=== PATIENT | female | born 1935 | race Caucasian/White ===

== ENCOUNTER → 2016-10-12 | Outpatient (CLI) | payer OTHER ==
[~2016-10-12] MED LIST: ASPEC81 PO; INDSR80 PO; LVQ750 PO; TYL325X PO
[2016-10-12 17:08] LABS: BLOOD UREA NITROGEN 17 mg/dl (7-18); BUN/CREATININE RATIO 17.2 (10-20); CARBON DIOXIDE 28 mmol/L (21-32); CHLORIDE 106 mmol/L (98-107); GLUCOSE 87 mg/dl (70-99); SODIUM 142 mmol/L (136-145)
== END | disposition home or self-care (01) ==
LOC: C.LABBFT 14:30
PROVIDERS: ATTEND Internal Medicine
DX: R60.9 Edema, unspecified (principal)

== ENCOUNTER → 2016-10-17 | Outpatient (CLI) | payer OTHER ==
[2016-10-17 17:31] LABS: URINE APPEARANCE CLEAR (CLEAR); URINE BILIRUBIN NEG (NEG); URINE COLOR YELLOW; URINE NITRITE NEG (NEG); URINE SPECIFIC GRAVITY 1.021 (1.000-1.030); UROBILINOGEN NEG (NEG)
[2016-10-17 17:33] LABS: MANUAL MICROSCOPIC REQUIRED? NO; REVIEW REQ? YES
== END | disposition home or self-care (01) ==
LOC: C.LABBFT 12:56
PROVIDERS: ATTEND Internal Medicine
DX: N32.81 Overactive bladder (principal)

== ENCOUNTER → 2017-04-03 | Outpatient (CLI) | payer OTHER ==
[2017-04-03 11:44] LABS: URINE APPEARANCE CLEAR (CLEAR); URINE BILIRUBIN NEG (NEG); URINE COLOR YELLOW; URINE NITRITE NEG (NEG); URINE PH 6.5 (4.5-7.5); URINE SPECIFIC GRAVITY 1.013 (1.000-1.030); UROBILINOGEN NEG (NEG)
[2017-04-03 11:45] LABS: MANUAL MICROSCOPIC REQUIRED? NO; REVIEW REQ? NO
== END | disposition home or self-care (01) ==
LOC: C.LABSPEC 11:03
PROVIDERS: ATTEND Physician Assistant
DX: R31.9 Hematuria, unspecified (principal)

== ENCOUNTER → 2017-09-14 | Outpatient (CLI) | payer OTHER ==
--- NOTE | 2017-09-14 12:02 | DIAGNOSTIC IMAGING REPORT ---
ABDOMINAL AORTIC ULTRASOUND CLINICAL HISTORY: LOW BACK PAIN, SYNCOPAL EPISODE COMPARISON STUDY: Abdomen and pelvis CT 12/28/2015. FINDINGS: The proximal abdominal aorta measures 1.9 cm, mid aorta 1.6 cm, and distal aorta 2.1 cm. The bilateral common iliac arteries measure 1.1 cm. IMPRESSION: Mildly ectatic abdominal aorta as described above. No evidence for an abdominal aortic aneurysm. Electronically signed by: Kennedy Milian M.D. 09/14/2017 12:01 PM Dictated Date/Time: 09/14/2017 11:54 AM
[2017-09-14 12:03] LABS: BASO % 0.6 %; BASO ABS # 0.06 K/uL (0-0.2); COMPLETE YES; HEMATOCRIT 42.9 % (37-47); IG% 0.5 %; LYMPH % 14.1 %; LYMPH ABS # 1.53 K/uL (1.2-3.4); MEAN CELL VOLUME 84.3 fL (80-100); MEAN CORPUSCULAR HEMOGLOBIN 28.5 pg (25-34); MEAN CORPUSCULAR HGB CONC 33.8 g/dl (32-36); NEUT % 72.8 %; PLATELET COUNT 200 K/uL (130-400); RED BLOOD COUNT 5.09 M/uL (4.2-5.4); WHITE BLOOD COUNT 10.86 K/uL (4.8-10.8)
[2017-09-14 12:10] LABS: PROTHROMBIN TIME (PATIENT) 10.4 SECONDS (9.0-12.0)
[2017-09-14 12:49] LABS: ALT/SGPT 13 U/L (12-78); AST/SGOT 12 U/L (15-37); BLOOD UREA NITROGEN 19 mg/dl (7-18); BUN/CREATININE RATIO 19.9 (10-20); CALCIUM 9.2 mg/dl (8.5-10.1); CARBON DIOXIDE 27 mmol/L (21-32); CHLORIDE 104 mmol/L (98-107); CREATININE 0.94 mg/dl (0.60-1.20); GLUCOSE 84 mg/dl (70-99); POTASSIUM 3.8 mmol/L (3.5-5.1); SODIUM 137 mmol/L (136-145)
[2017-09-14 12:59] LABS: ALB/GLOB RATIO 0.6 (0.9-2); ALKALINE PHOSPHATASE 103 U/L (45-117)
== END | disposition home or self-care (01) ==
LOC: C.ULTR 11:07
PROVIDERS: ATTEND Nurse Practitioner
DX: M54.5 Low back pain (principal); R55 Syncope and collapse; R53.83 Other fatigue

== ENCOUNTER 2017-11-12 08:38 | Emergency (ER) | payer OTHER ==
[~2017-11-12] VITALS: Ht 154.9 cm; Wt 80.0 kg
[2017-11-12 08:45] VITALS: TEMP 36.4; Ht 154.9 cm; Wt 80.0 kg
--- NOTE | 2017-11-12 09:28 | DIAGNOSTIC IMAGING REPORT ---
L KNEE 1 OR 2 VIEWS ROUTINE CLINICAL HISTORY: Left knee pain status post trauma COMPARISON: None. DISCUSSION: No fractures or dislocations are visualized. The bones are osteopenic. There is pronounced anterior medial soft tissue swelling. IMPRESSION: Pronounced soft tissue swelling. No fractures are visualized Electronically signed by: Sagar Seo M.D. 11/12/2017 9:27 AM Dictated Date/Time: 11/12/2017 9:26 AM
--- NOTE | 2017-11-12 10:00 | EMERGENCY ROOM VISIT NOTE ---
History Report prepared by David: Juan Marcelino Under the Supervision of: Dr. Fede Higgins D.O. First contact with patient: 09:05 Chief Complaint: KNEEPAIN Stated Complaint: LEFT KNEE INJURY History of Present Illness The patient is an 82 year old female who presents to the Emergency Room with complaints of a sudden left knee injury that occurred after a mechanical fall prior to arrival this morning. The patient says that she was walking in her kitchen and just "went down". She says that she usually uses a walker, but she was not using the walker when she fell. The patient notes that she has not fallen in a couple years. She says that she has had persistent pain around the left knee with some large bruising. She notes that the pain is worsened with bending her leg. The patient states that she takes a baby Aspirin daily but no other blood thinners. Source of History: patient Onset: [employer] SERV[employer]ESSION[employer] this morning Position: knee (left) Symptom Intensity: with bruising Quality: other (pain) Timing: other (sudden) Modifying Factors (Worsening): movement Note: No other associated symptoms noted. Review of Systems See HPI for pertinent positives & negatives. A total of 10 systems reviewed and were otherwise negative. Past Medical & Surgical Medical Problems: (1) Community acquired bacterial pneumonia (2) Headache (3) Hypertension Family History Cancer Stroke MOTHER Social History Smoking Status: Former Smoker Drug Use: none Marital Status: Housing Status: lives with family Occupation Status: retired Current/Historical Medications Scheduled Aspirin (Sindhu Aspirin Ec Low Dose), 81 MG PO DAILY Multiple Vitamins W/ Minerals ([employer] Formula), 1 CAP PO DAILY Propranolol Hcl (Propranolol Hcl Er), 160 MG PO DAILY Allergies Coded Allergies: Furosemide (Verified Allergy, Intermediate, water blisters, 11/12/17) Physical Exam Vital Signs Date Time Temp Pulse Resp B/P (MAP) Pulse Ox O2 Delivery O2 Flow Rate FiO2 11/12/17 08:45 36.4 70 20 144/73 93 Room Air Physical Exam CONSTITUTIONAL/VITAL SIGNS: Reviewed / noted above. GENERAL: Non-toxic in appearance. INTEGUMENTARY: Warm, dry, and Pinson. HEAD: Normocephalic. EYES: without scleral icterus or trauma. ENT/OROPHARYNX: clear and moist. LYMPHADENOPATHY/NECK: Is supple without lymphadenopathy or meningismus. RESPIRATORY: Lungs clear and equal. CARDIOVASCULAR: Regular rate and rhythm. GI/ABDOMEN: Soft and nontender. No organomegaly or pulsatile mass. No rebound or guarding. Normal bowel sounds. EXTREMITIES: Bruise lateral aspect leg leg and overlying left knee. Abrasion/ skin tear overlying left knee. BACK: No CVA tenderness. NEUROLOGICAL: Intact without focal deficits. PSYCHIATRIC: normal affect. MUSCULOSKELETAL: Normally developed with good muscle tone. Medical Decision & Procedures ER Provider Diagnostic Interpretation: X ray results and stated below per my interpretation and radiology interpretation. L KNEE 1 OR 2 VIEWS ROUTINE CLINICAL HISTORY: Left knee pain status post trauma COMPARISON: None. DISCUSSION: No fractures or dislocations are visualized. The bones are osteopenic. There is pronounced anterior medial soft tissue swelling. IMPRESSION: Pronounced soft tissue swelling. No fractures are visualized Electronically signed by: Sagar Seo M.D. 11/12/2017 9:27 AM Dictated Date/Time: 11/12/2017 9:26 AM ED Course 0950: Previous medical records were reviewed. The patient was evaluated in room B6. A complete history and physical examination was performed. I discussed the results and findings with the patient. She verbalized agreement of the treatment plan. She will be discharged home. Medical Decision Differentials include: Close head injury, intracranial bleed, facial trauma, cervical spine trauma, chest and thoracic trauma, abdominal and intra-abdominal trauma, spine neurologic trauma, and extremity trauma. This is a 82-year-old female who presents to the ED after a fall. The patient states that she was walking in the kitchen without her walker and her leg gave out causing her to fall onto her left knee. The patient presents with a moderate sized ecchymotic area over the left knee with a small abrasion/skin tear. There is also a moderate amount of ecchymosis in the left lower extremity laterally. The patient has good distal pulses. She has no pain with axial loading. There is no apparent ligamentous laxity on exam of the leg. There is no fullness in the popliteal region. The patient is otherwise neurovascularly intact. X-ray did not show fracture. The patient was told the results. She had the wound cleaned and dressed on the left knee. An Gwyn bandage was applied over the lower extremity for some compression. She was told to follow-up with Dr. Love later this week for recheck. She was advised to use her walker at all times. Medication Reconcilliation Current Medication List: was personally reviewed by me Blood Pressure Screening Patient's blood pressure: Elevated blood pressure Blood pressure disposition: Elevated BP felt to be situational Impression Primary Impression: Contusion of left knee Additional Impressions: Contusion of left leg Abrasion of left knee Scribe Attestation The scribe's documentation has been prepared under my direction and personally reviewed by me in its entirety. I confirm that the note above accurately reflects all work, treatment, procedures, and medical decision making performed by me. Departure Information Dispostion Home / Self-Care Referrals Stan Love M.D. (PCP) Patient Instructions My [facility] Additional Instructions Keep the Gwyn wrap in place until being seen by your PCP later this week. Discontinue aspirin for the next several days. Return for any concerns, signs of infection or other issues. Use your walker at all times. Problem Qualifiers
[2017-11-12 10:20] VITALS: BP 140/89; PULSE 64; O2SAT 95
[2017-11-24] MEDS ORDERED: PROP160C PO (09:22)
[2017-11-24] MEDS ORDERED: MULT1CAP53 PO (09:22)
[2017-11-24] MEDS ORDERED: ASPI1TAB2 PO (09:22)
== END 2017-11-12 10:31 | disposition home or self-care (01) ==
LOC: EDBD 08:38 → C.EDB 08:39
DX: S80.02XA Contusion of left knee, initial encounter (principal); S80.212A Abrasion, left knee, initial encounter; W19.XXXA Unspecified fall, initial encounter; Y92.090 Kitchen in other non-institutional residence as the place of occurrence of the external cause; I10 Essential (primary) hypertension; Z79.82 Long term (current) use of aspirin; Z79.899 Other long term (current) drug therapy

== ENCOUNTER → 2017-11-16 | Outpatient (CLI) | payer OTHER ==
[~2017-11-16] MED LIST changes: -ASPEC81 PO; +ASPI1TAB2 PO; -INDSR80 PO; -LVQ750 PO; +MULT1CAP53 PO; +PROP160C PO; -TYL325X PO
--- NOTE | 2017-11-16 09:32 | DIAGNOSTIC IMAGING REPORT ---
L RIBS UNILATERAL WITH PA CHEST CLINICAL HISTORY: Fall. Left-sided rib pain. COMPARISON STUDY: Chest radiograph August 20, 2016. FINDINGS: There is no pneumothorax. There is a trace left pleural effusion with mild left basilar opacity. No acute left rib fractures are identified. There are cholecystectomy clips. There are old bilateral proximal humeral fractures. There is no evidence for pulmonary edema. Cardiomediastinal silhouette is stable. IMPRESSION: 1. No pneumothorax. No acute left rib fractures identified. 2. Trace left pleural effusion with mild left basilar opacity suggestive of atelectasis. Electronically signed by: Artemio Delgadillo M.D. 11/16/2017 9:31 AM Dictated Date/Time: 11/16/2017 9:25 AM
== END | disposition home or self-care (01) ==
LOC: C.RAD1850 09:08
PROVIDERS: ATTEND Internal Medicine
DX: R07.81 Pleurodynia (principal)

== ENCOUNTER 2017-11-24 15:55 | Inpatient (IN) | payer OTHER ==
[~2017-11-24] VITALS: Ht 154.9 cm; Wt 80.4 kg
[2017-11-24] MEDS ORDERED: ACETAMINOPHEN 500 MG TAB PO STA (16:17)
[2017-11-24] MEDS ORDERED: ONDANSETRON INJ 2 MG/ML 2 ML VIAL IV STA (16:17)
[2017-11-24] MEDS ORDERED: MoRPHine SULFATE 4 MG/ML 1 ML CARP\\VIAL IV STA (16:17)
--- NOTE | 2017-11-24 16:27 | EMERGENCY ROOM VISIT NOTE ---
History Report prepared by David: Evan Dent Under the Supervision of: Dr. Manjit Herron M.D. First contact with patient: 16:04 Chief Complaint: LEG PAIN,LEG INJURY Stated Complaint: FELL ON LEFT LEG History of Present Illness The patient is an 82 year old female with a past medical history of hypertension who presents to the ED with a cc of constant left knee pain following a fall occurring 11/12/2017. Positive for chills. Negative for numbness and tingling in her left leg, nausea, vomiting, changes in her bowel movements, and urinary symptoms. The patient states that she fell on 11/12/2017 and hurt her knee. She notes that she came to the emergency department and had an X-RAY done which showed that she had no broken bones. She reports that her knee has since become more hot and swollen. The patient states that she has not had any other falls since her initial one. Per , the patient has been able to walk around the house with her walker. The patient notes that she takes Aleve for pain and Inderal for her tremors. Source of History: patient, spouse/significant other Onset: 11/12/2017 Position: knee (left) Quality: other (swollen and hot) Timing: constant Associated Symptoms: + chills, No nausea, No vomiting, No urinary symptoms, No numbness Note: The patient also denies tingling in her legs and changes in her bowel movements. Review of Systems See HPI for pertinent positives and negatives. A total of ten systems were reviewed and were otherwise negative. Past Medical & Surgical Medical Problems: (1) Community acquired bacterial pneumonia (2) Fall (3) Headache (4) Hypertension Family History Cancer Stroke MOTHER Social History Smoking Status: Former Smoker Drug Use: none Marital Status: Housing Status: lives with family Occupation Status: retired Current/Historical Medications Scheduled Aspirin (Sindhu Aspirin Ec Low Dose), 81 MG PO HOLD Multiple Vitamins W/ Minerals ([employer] Formula), 1 CAP PO DAILY Propranolol Hcl (Propranolol Hcl Er), 160 MG PO DAILY Allergies Coded Allergies: Furosemide (Verified Allergy, Intermediate, water blisters, 11/12/17) Physical Exam Vital Signs Date Time Temp Pulse Resp B/P (MAP) Pulse Ox O2 Delivery O2 Flow Rate FiO2 11/24/17 18:24 68 11/24/17 18:20 66 131/64 93 Room Air 11/24/17 15:57 36.2 78 20 139/74 96 Room Air Physical Exam GENERAL: Awake, alert, well-appearing, NAD, obese, mild discomfort HENT: Normocephalic, atraumatic. EYES: Normal conjunctiva. Sclera non-icteric. NECK: Supple. No nuchal rigidity. FROM. RESPIRATORY: CTAB, no rhonchi, wheezing, crackles CARDIAC: RRR, no MRG ABDOMEN: Soft, NTND, BS+ MSK: No chest wall TTP, no LE edema NEURO: GCS 15, CN 2-12 intact, moves all 4s on command, allodynia, SP/DP/Tib nerves intact to sensory and motor SKIN: No rash or jaundice noted, erythema and bruising to knee and lower extremity distal to the knee, skin is taut, blanching erythema, large effusion at the knee with redness, hemorrhagic bullae 5x3cm over left lateral duarte. Medical Decision & Procedures ER Provider Diagnostic Interpretation: Radiology results as stated below per my review and radiologist interpretation: L TIBIA/FIBULA 2 VIEWS ROUTINE FINDINGS: Bones appear mildly demineralized. Previously described longitudinal acute fracture of the patella is not appreciated by radiographs. Tricompartmental osteoarthritis about the knee, mild to moderate within the patellofemoral joint. Extensive soft tissue swelling about the knee and lateral mid lower leg measuring up to 13 cm in length with level left mid calf. These findings likely correlate with hematoma as seen on comparison study. IMPRESSION: 1. Previously described acute fracture of the patella is not appreciated by radiographs. 2. Extensive soft tissue swelling about the knee and lateral aspect of the mid lower leg is compatible with hematoma formation as seen on comparison CT of same day. The above report was generated using voice recognition software. It may contain grammatical, syntax or spelling errors. Electronically signed by: Hosea Adkins M.D. 11/24/2017 5:[address] L LOWER EXTREMITY WITHOUT FINDINGS: The bones are osteopenic. There is a longitudinal fracture through the lateral aspect of the patella. The fracture fragment measures 7 x 6 x 14 mm. There are mild osteoarthritic changes present. No fractures of the proximal tibia, fibula, or distal femur are visualized. There is an anterior and lateral curvilinear fluid collection which is mildly hyperdense and consistent with a hematoma. This measures 2 cm in thickness, and has a craniocaudad extent of approximately 12 cm. This is contiguous with a lateral soft tissue hematoma which abuts the superficial fascia of the tibialis posterior muscle. No intramuscular involvement is visualized on this examination. IMPRESSION: 1. Longitudinal fracture through the lateral aspect of the patella 2. Large soft tissue hematomas. The lateral component abuts the superficial fascia of the tibialis posterior muscle. No intramuscular involvement is visualized. Electronically signed by: Sagar Seo M.D. 11/24/2017 5:14 PM ULTRASOUND L VENOUS DOPP LOWER EXT UNILAT FINDINGS: Real-time and color flow Doppler imaging were performed. Flow was seen within the femoral, popliteal and calf veins with no intraluminal thrombus demonstrated. The saphenous vein is patent. There is a complex fluid collection within the lateral aspect of the lower leg. This is consistent with a hematoma. IMPRESSION: 1. No evidence of left lower extremity DVT 2. Superficial soft tissue hematoma within the lateral aspect of the lower leg measuring 25 x 8 x 3 cm Electronically signed by: Sagar Seo M.D. 11/24/2017 6:31 PM ARTERIAL DOPPLER ULTRASOUND OF THE LEFT LOWER EXTREMITY FINDINGS: There is a large left lateral calf hematoma. The patient was unable to tolerate ABIs. There is monophasic flow with the left common femoral artery, superficial femoral artery, popliteal artery, anterior tibial artery, posterior tibial artery, and peroneal artery. The monophasic waveforms raise the possibility of a more proximal iliac stenosis. IMPRESSION: 1. No evidence of focal stenosis within the left lower extremity 2. Diffuse monophasic waveforms raising the possibility of a more proximal iliac stenosis 3. Large left lateral calf hematoma Electronically signed by: Sagar Seo M.D. 11/24/2017 6:34 PM Laboratory Results 11/24/17 16:30 Red Blood Count 3.80, Mean Corpuscular Volume 84.5, Mean Corpuscular Hemoglobin 27.6, Mean Corpuscular Hemoglobin Concent 32.7, Mean Platelet Volume 8.3, Neutrophils (%) (Auto) 70.3, Lymphocytes (%) (Auto) 14.0, Monocytes (%) (Auto) 9.7, Eosinophils (%) (Auto) 5.1, Basophils (%) (Auto) 0.5, Neutrophils # (Auto) 6.40, Lymphocytes # (Auto) 1.28, Monocytes # (Auto) 0.89, Eosinophils # (Auto) 0.47, Basophils # (Auto) 0.05 11/24/17 16:30 Test 11/24/17 16:30 White Blood Count 9.13 K/uL (4.8-10.8) Red Blood Count 3.80 M/uL (4.2-5.4) Hemoglobin 10.5 g/dL (12.0-16.0) Hematocrit 32.1 % (37-47) Mean Corpuscular Volume 84.5 fL (80-100) Mean Corpuscular Hemoglobin 27.6 pg (25-34) Mean Corpuscular Hemoglobin Concent 32.7 g/dl (32-36) Platelet Count 276 K/uL (130-400) Mean Platelet Volume 8.3 fL (7.4-10.4) Neutrophils (%) (Auto) 70.3 % Lymphocytes (%) (Auto) 14.0 % Monocytes (%) (Auto) 9.7 % Eosinophils (%) (Auto) 5.1 % Basophils (%) (Auto) 0.5 % Neutrophils # (Auto) 6.40 K/uL (1.4-6.5) Lymphocytes # (Auto) 1.28 K/uL (1.2-3.4) Monocytes # (Auto) 0.89 K/uL (0.11-0.59) Eosinophils # (Auto) 0.47 K/uL (0-0.5) Basophils # (Auto) 0.05 K/uL (0-0.2) RDW Standard Deviation 46.6 fL (36.4-46.3) RDW Coefficient of Variation 15.1 % (11.5-14.5) Immature Granulocyte % (Auto) 0.4 % Immature Granulocyte # (Auto) 0.04 K/uL (0.00-0.02) Erythrocyte Sedimentation Rate 50 mm/hr (0-21) Prothrombin Time 10.1 SECONDS (9.0-12.0) Prothromb Time International Ratio 1.0 (0.9-1.1) Activated Partial Thromboplast Time 30.3 SECONDS (21.0-31.0) Partial Thromboplastin Ratio 1.2 Anion Gap 4.0 mmol/L (3-11) Est Creatinine Clear Calc Drug Dose 34.1 ml/min Estimated GFR () 49.0 Estimated GFR (Non- 42.3 BUN/Creatinine Ratio 16.8 (10-20) Calcium Level 8.9 mg/dl (8.5-10.1) C-Reactive Protein 8.67 mg/dl (0-0.29) Laboratory results reviewed by me Medications Administered Medications (Trade) Dose Ordered Sig/Georgette Route Start Time Stop Time Status Last Admin Dose Admin Ondansetron HCl (Zofran Inj) 4 mg NOW STAT IV 11/24/17 16:17 11/24/17 16:20 DC 11/24/17 16:37 4 MG Acetaminophen (Tylenol Tab) 1,000 mg NOW STAT PO 11/24/17 16:17 11/24/17 16:20 DC 11/24/17 16:38 1,000 MG Morphine Sulfate (MoRPHine SULFATE INJ) 4 mg NOW STAT IV 11/24/17 16:17 11/24/17 16:20 DC 11/24/17 16:37 4 MG Vancomycin HCl 1600 mg/Sodium Chloride 532 ml @ 200 mls/hr ONE STAT IV 11/24/17 18:44 11/24/17 21:23 11/24/17 19:05 200 MLS/HR ED Course 1609: The patient was evaluated in room A11. A complete history and physical exam was performed. 1724: I reevaluated and updated the patient. 1938: Upon reexamination, the patient was stable. I discussed the test results and treatment plan with her. Discussed the patient's case with Jareth Abreu, resident software test and validation engineer with Dr. Grande - Hospitalist, [facility]. The patient will be evaluated for further management. Medical Decision The patient is an 82 year old female with a past medical history of hypertension who presents to the ED with a cc of constant left knee pain following a fall occurring 11/12/2017. Positive for chills. Negative for numbness and tingling in her left leg, nausea, vomiting, changes in her bowel movements, and urinary symptoms. Differential diagnosis: Etiologies such as fracture, dislocation, neurovascular compromise, compartment syndrome, soft tissue injury, as well as others were entertained. Prior records were reviewed. Patient did have a fall on 12 November where she was seen and evaluated here at the emergency department and had a negative left knee film. Patient was seen and evaluated the bedside. Patient was presenting as if she was still having some complaints of some left lower extremity pain. Patient has noticed some swelling warmth and redness to the left leg. Patient does have some significant swelling. Patient does have pain out of proportion to exam the left lower extremity. Patient is otherwise neurovascularly intact distally in the foot. Patient did have blood work completed, CT of the knee, DVT ultrasound, and was given medications for pain control. Patient's blood work is fairly unremarkable. Patient did have elevations in her ESR and CRP. Patient CT of the knee did show a lateral patellar flak fracture. Patient also does have significant surrounding hematoma. Patient did have ultrasounds which did not show any focal arterial abnormality. She may have some proximal stenosis. The patient had no evidence of any DVT based on her duplex venous Doppler. Given that the patient does have some surrounding erythema with an elevated ESR and CRP unsure as to whether or not this is purely traumatic versus infectious. Patient was ordered a dose of vancomycin. Given the extent of the wound and the patient's inability to truly flex the knee I believe she would benefit from wound care and possibly an orthopedics consult for possible drainage of the hematoma status post fracture. The hospitalist was paged and the patient was admitted to the medicine service. Head Trauma GCS Score: 15 Medication Reconcilliation Current Medication List: was personally reviewed by me Blood Pressure Screening Patient's blood pressure: Elevated blood pressure Blood pressure disposition: Elevated BP felt to be situational Consults Time Called: 1848 Consulting Physician: Tesfaye Abreu, resident software test and validation engineer for Dr. Grande - [place] Hospitalist, [facility] Returned Call: [phone] Discussed the patient's case. The patient will be evaluated for further treatment and disposition. Impression Primary Impression: Patella fracture Additional Impressions: Hematoma of lower extremity Cellulitis of left lower leg Scribe Attestation The scribe's documentation has been prepared under my direction and personally reviewed by me in its entirety. I confirm that the note above accurately reflects all work, treatment, procedures, and medical decision making performed by me. Departure Information Dispostion Being Evaluated By Hospitalist Referrals Stan Love M.D. (PCP) Patient Instructions My [facility] Problem Qualifiers
[2017-11-24 16:43] LABS: BASO % 0.5 %; BASO ABS # 0.05 K/uL (0-0.2); EOS % 5.1 %; EOS ABS # 0.47 K/uL (0-0.5); HEMATOCRIT 32.1 % (37-47); HEMOGLOBIN 10.5 g/dL (12.0-16.0); IG# 0.04 K/uL (0.00-0.02); LYMPH ABS # 1.28 K/uL (1.2-3.4); MEAN CELL VOLUME 84.5 fL (80-100); MEAN CORPUSCULAR HEMOGLOBIN 27.6 pg (25-34); MEAN CORPUSCULAR HGB CONC 32.7 g/dl (32-36); MEAN PLATELET VOLUME 8.3 fL (7.4-10.4); MONO % 9.7 %; MONO ABS # 0.89 K/uL (0.11-0.59); NEUT % 70.3 %; PLATELET COUNT 276 K/uL (130-400); RED CELL DISTRIBUTION WIDTH CV 15.1 % (11.5-14.5); RED CELL DISTRIBUTION WIDTH SD 46.6 fL (36.4-46.3); WHITE BLOOD COUNT 9.13 K/uL (4.8-10.8)
[2017-11-24 16:50] LABS: PTT PATIENT 30.3 SECONDS (21.0-31.0)
[2017-11-24 16:59] LABS: CALCIUM 8.9 mg/dl (8.5-10.1); CREATININE 1.18 mg/dl (0.60-1.20); POTASSIUM 4.1 mmol/L (3.5-5.1)
--- NOTE | 2017-11-24 17:15 | DIAGNOSTIC IMAGING REPORT ---
CT L LOWER EXTREMITY WITHOUT CT DOSE: 185.32 mGy.cm CLINICAL HISTORY: tense compartments, allodynia, fall 11/12, painful, swollen knee left knee pain TECHNIQUE: Helical images were acquired in the transverse plane. Sagittal and coronal reformatted images were acquired. A dose lowering technique was utilized adhering to the principles of ALARA. COMPARISON STUDY: Conventional radiographic study dated 11/12/2017 FINDINGS: The bones are osteopenic. There is a longitudinal fracture through the lateral aspect of the patella. The fracture fragment measures 7 x 6 x 14 mm. There are mild osteoarthritic changes present. No fractures of the proximal tibia, fibula, or distal femur are visualized. There is an anterior and lateral curvilinear fluid collection which is mildly hyperdense and consistent with a hematoma. This measures 2 cm in thickness, and has a craniocaudad extent of approximately 12 cm. This is contiguous with a lateral soft tissue hematoma which abuts the superficial fascia of the tibialis posterior muscle. No intramuscular involvement is visualized on this examination. IMPRESSION: 1. Longitudinal fracture through the lateral aspect of the patella 2. Large soft tissue hematomas. The lateral component abuts the superficial fascia of the tibialis posterior muscle. No intramuscular involvement is visualized. Electronically signed by: Sagar Seo M.D. 11/24/2017 5:14 PM Dictated Date/Time: 11/24/2017 5:06 PM
--- NOTE | 2017-11-24 17:23 | DIAGNOSTIC IMAGING REPORT ---
L TIBIA/FIBULA 2 VIEWS ROUTINE HISTORY: 82 years-old Female fall 11/12, tense compartments acute leg pain status post fall COMPARISON: CT left lower extremity 11/24/2017 TECHNIQUE: 3 views of the left tibia and fibula. FINDINGS: Bones appear mildly demineralized. Previously described longitudinal acute fracture of the patella is not appreciated by radiographs. Tricompartmental osteoarthritis about the knee, mild to moderate within the patellofemoral joint. Extensive soft tissue swelling about the knee and lateral mid lower leg measuring up to 13 cm in length with level left mid calf. These findings likely correlate with hematoma as seen on comparison study. IMPRESSION: 1. Previously described acute fracture of the patella is not appreciated by radiographs. 2. Extensive soft tissue swelling about the knee and lateral aspect of the mid lower leg is compatible with hematoma formation as seen on comparison CT of same day. The above report was generated using voice recognition software. It may contain grammatical, syntax or spelling errors. Electronically signed by: Hosea Adkins M.D. 11/24/2017 5:21 PM Dictated Date/Time: 11/24/2017 5:17 PM
--- NOTE | 2017-11-24 18:32 | DIAGNOSTIC IMAGING REPORT ---
ULTRASOUND L VENOUS DOPP LOWER EXT UNILAT CLINICAL HISTORY: Left lower extremity pain and swelling COMPARISON STUDY: No previous studies for comparison. FINDINGS: Real-time and color flow Doppler imaging were performed. Flow was seen within the femoral, popliteal and calf veins with no intraluminal thrombus demonstrated. The saphenous vein is patent. There is a complex fluid collection within the lateral aspect of the lower leg. This is consistent with a hematoma. IMPRESSION: 1. No evidence of left lower extremity DVT 2. Superficial soft tissue hematoma within the lateral aspect of the lower leg measuring 25 x 8 x 3 cm Electronically signed by: Sagar Seo M.D. 11/24/2017 6:31 PM Dictated Date/Time: 11/24/2017 6:30 PM
--- NOTE | 2017-11-24 18:35 | DIAGNOSTIC IMAGING REPORT ---
ARTERIAL DOPPLER ULTRASOUND OF THE LEFT LOWER EXTREMITY CLINICAL HISTORY: Left leg pain status post trauma. Evaluate for vascular injury. COMPARISON STUDY: No previous studies for comparison. FINDINGS: There is a large left lateral calf hematoma. The patient was unable to tolerate ABIs. There is monophasic flow with the left common femoral artery, superficial femoral artery, popliteal artery, anterior tibial artery, posterior tibial artery, and peroneal artery. The monophasic waveforms raise the possibility of a more proximal iliac stenosis. IMPRESSION: 1. No evidence of focal stenosis within the left lower extremity 2. Diffuse monophasic waveforms raising the possibility of a more proximal iliac stenosis 3. Large left lateral calf hematoma Electronically signed by: Sagar Seo M.D. 11/24/2017 6:34 PM Dictated Date/Time: 11/24/2017 6:31 PM
[2017-11-24] MEDS ORDERED: VANCOMYCIN INJ 1,600 MG in SODIUM CHLORIDE 0.9% 500ML 500 ML IV STA (18:44)
[2017-11-24] MEDS ORDERED: VANCOMYCIN CONSULT ACTIVE PRN (18:45)
[2017-11-24] MEDS ORDERED: ONDANSETRON INJ 2 MG/ML 2 ML VIAL IV PRN (20:00)
[2017-11-24] MEDS ORDERED: ALUMINUM/MAGNESIUM/SIMETH (MAALOX MAX) 30 ML UDC PO PRN (20:00)
[2017-11-24] MEDS ORDERED: MAGNESIUM HYDROXIDE SUSP 30 ML UDC PO PRN (20:00)
[2017-11-24] MEDS ORDERED: POLYETHYLENE (MIRALAX) 17 GM PACK PO PRN (20:00)
[2017-11-24] MEDS ORDERED: CEFAZOLIN IV 2,000 MG in DEXTROSE 5% 50ML 50 ML IV SCH (20:15)
--- NOTE | 2017-11-24 20:49 | History and Physical ---
History & Physical Date & Time of Service: Nov 24, 2017 at 20:28 Chief Complaint: Fell On Left Leg Primary Care Physician: Stan Love M.D. History of Present Illness Source: patient, family (daughter and son at bedside) This is a pleasant 82 year old female who presents with knee and leg swelling for the past 2 weeks. The patient reports a mechanical fall at home on November 12 after which she had knee and leg pain. She was brought to the [facility] ED at that time. She had negative radiographs and was discharged home with supportive care. Per daughter , the leg swelling actually seems to have improved overall. However she has progressively noted blood blistering on the outside of the leg and increasing redness. She denies any fevers, chills or sweats. She has been eating and drinking well. She has not had any nausea or vomiting and has had a good appetite. No change to her bowel movements or urination. She decided to come back to the ED today because a neighbor who is a nurse saw her today and advised that she should be seen again. In the ED, U/S was negative for DVT. CT of the leg did demonstrate a longitudinal fracture of the patella. In addition, it is noted that she has extensive hematoma on the lateral aspect of the leg. Past Medical/Surgical History Hypertension Hx of bilateral humeral fracture; non-operative management 2014 Family History Cancer Stroke MOTHER Social History Smoking Status: Former Smoker Smokeless Tobacco Use: No Alcohol Use: none Drug Use: none Marital Status: Housing status: lives alone Occupational Status: retired Immunizations History of Influenza Vaccine: No History of Tetanus Vaccine?: No History of Pneumococcal: No History of Hepatitis B Vaccine: No Multi-Drug Resistant Organisms History of MDRO: No Allergies Coded Allergies: Furosemide (Verified Allergy, Intermediate, water blisters, 11/12/17) Home Medications Scheduled Aspirin (Sindhu Aspirin Ec Low Dose), 81 MG PO HOLD Multiple Vitamins W/ Minerals ([employer] Formula), 1 CAP PO DAILY Propranolol Hcl (Propranolol Hcl Er), 160 MG PO DAILY Review of Systems A 10 point review of systems was negative unless stated above. Physical Exam Vital Signs Date Time Temp Pulse Resp B/P (MAP) Pulse Ox O2 Delivery O2 Flow Rate FiO2 11/24/17 18:24 68 11/24/17 18:20 66 131/64 93 Room Air 11/24/17 15:57 36.2 78 20 139/74 96 Room Air General Appearance: WD/WN, no apparent distress Head: normocephalic, atraumatic Eyes: normal inspection, PERRL ENT: hearing grossly normal, pharynx normal Neck: supple, no adenopathy, no JVD Respiratory/Chest: lungs clear, no respiratory distress Cardiovascular: regular rate, rhythm, no gallop, no murmur Abdomen/GI: normal bowel sounds, non tender, soft Extremities/Musculoskelatal: + pertinent finding (left leg: swelling from the knee down to distal tib/fib; lateral superficial hematoma; tenderness throughout ; unable to evaluate passive or active ROM due to tenderness; distal pulses difficult to palpate due to mild swelling of the ankle/foot; distal sensation intact) Neurologic/Psych: alert, normal mood/affect Lymphatic: no adenopathy Diagnostics Laboratory Results Results Past 24 Hours Test 11/24/17 16:30 Range/Units White Blood Count 9.13 4.8-10.8 K/uL Red Blood Count 3.80 4.2-5.4 M/uL Hemoglobin 10.5 12.0-16.0 g/dL Hematocrit 32.1 37-47 % Mean Corpuscular Volume 84.5 80-100 fL Mean Corpuscular Hemoglobin 27.6 25-34 pg Mean Corpuscular Hemoglobin Concent 32.7 32-36 g/dl Platelet Count 276 130-400 K/uL Mean Platelet Volume 8.3 7.4-10.4 fL Neutrophils (%) (Auto) 70.3 % Lymphocytes (%) (Auto) 14.0 % Monocytes (%) (Auto) 9.7 % Eosinophils (%) (Auto) 5.1 % Basophils (%) (Auto) 0.5 % Neutrophils # (Auto) 6.40 1.4-6.5 K/uL Lymphocytes # (Auto) 1.28 1.2-3.4 K/uL Monocytes # (Auto) 0.89 0.11-0.59 K/uL Eosinophils # (Auto) 0.47 0-0.5 K/uL Basophils # (Auto) 0.05 0-0.2 K/uL RDW Standard Deviation 46.6 36.4-46.3 fL RDW Coefficient of Variation 15.1 11.5-14.5 % Immature Granulocyte % (Auto) 0.4 % Immature Granulocyte # (Auto) 0.04 0.00-0.02 K/uL Erythrocyte Sedimentation Rate 50 0-21 mm/hr Prothrombin Time 10.1 9.0-12.0 SECONDS Prothromb Time International Ratio 1.0 0.9-1.1 Activated Partial Thromboplast Time 30.3 21.0-31.0 SECONDS Partial Thromboplastin Ratio 1.2 Sodium Level 140 136-145 mmol/L Potassium Level 4.1 3.5-5.1 mmol/L Chloride Level 109 98-107 mmol/L Carbon Dioxide Level 27 21-32 mmol/L Anion Gap 4.0 3-11 mmol/L Blood Urea Nitrogen 20 7-18 mg/dl Creatinine 1.18 0.60-1.20 mg/dl Est Creatinine Clear Calc Drug Dose 34.1 ml/min Estimated GFR () 49.0 Estimated GFR (Non- 42.3 BUN/Creatinine Ratio 16.8 10-20 Random Glucose 104 70-99 mg/dl Calcium Level 8.9 8.5-10.1 mg/dl C-Reactive Protein 8.67 0-0.29 mg/dl Diagnostic Radiology [~ rep ct add3]] CT L LOWER EXTREMITY WITHOUT CT DOSE: 185.32 mGy.cm CLINICAL HISTORY: tense compartments, allodynia, fall 11/12, painful, swollen knee left knee pain TECHNIQUE: Helical images were acquired in the transverse plane. Sagittal and coronal reformatted images were acquired. A dose lowering technique was utilized adhering to the principles of ALARA. COMPARISON STUDY: Conventional radiographic study dated 11/12/2017 FINDINGS: The bones are osteopenic. There is a longitudinal fracture through the lateral aspect of the patella. The fracture fragment measures 7 x 6 x 14 mm. There are mild osteoarthritic changes present. No fractures of the proximal tibia, fibula, or distal femur are visualized. There is an anterior and lateral curvilinear fluid collection which is mildly hyperdense and consistent with a hematoma. This measures 2 cm in thickness, and has a craniocaudad extent of approximately 12 cm. This is contiguous with a lateral soft tissue hematoma which abuts the superficial fascia of the tibialis posterior muscle. No intramuscular involvement is visualized on this examination. IMPRESSION: 1. Longitudinal fracture through the lateral aspect of the patella 2. Large soft tissue hematomas. The lateral component abuts the superficial fascia of the tibialis posterior muscle. No intramuscular involvement is visualized. Electronically signed by: Sagar Seo M.D. 11/24/2017 5:14 PM Dictated Date/Time: 11/24/2017 5:06 PM COMPARISON: CT left lower extremity 11/24/2017 TECHNIQUE: 3 views of the left tibia and fibula. FINDINGS: Bones appear mildly demineralized. Previously described longitudinal acute fracture of the patella is not appreciated by radiographs. Tricompartmental osteoarthritis about the knee, mild to moderate within the patellofemoral joint. Extensive soft tissue swelling about the knee and lateral mid lower leg measuring up to 13 cm in length with level left mid calf. These findings likely correlate with hematoma as seen on comparison study. IMPRESSION: 1. Previously described acute fracture of the patella is not appreciated by radiographs. 2. Extensive soft tissue swelling about the knee and lateral aspect of the mid lower leg is compatible with hematoma formation as seen on comparison CT of same day. [~ rep ct add3]] ULTRASOUND L VENOUS DOPP LOWER EXT UNILAT CLINICAL HISTORY: Left lower extremity pain and swelling COMPARISON STUDY: No previous studies for comparison. FINDINGS: Real-time and color flow Doppler imaging were performed. Flow was seen within the femoral, popliteal and calf veins with no intraluminal thrombus demonstrated. The saphenous vein is patent. There is a complex fluid collection within the lateral aspect of the lower leg. This is consistent with a hematoma. IMPRESSION: 1. No evidence of left lower extremity DVT 2. Superficial soft tissue hematoma within the lateral aspect of the lower leg measuring 25 x 8 x 3 cm Electronically signed by: Sagar Seo M.D. 11/24/2017 6:31 PM Dictated Date/Time: 11/24/2017 6:30 PM ARTERIAL DOPPLER ULTRASOUND OF THE LEFT LOWER EXTREMITY CLINICAL HISTORY: Left leg pain status post trauma. Evaluate for vascular injury. COMPARISON STUDY: No previous studies for comparison. FINDINGS: There is a large left lateral calf hematoma. The patient was unable to tolerate ABIs. There is monophasic flow with the left common femoral artery, superficial femoral artery, popliteal artery, anterior tibial artery, posterior tibial artery, and peroneal artery. The monophasic waveforms raise the possibility of a more proximal iliac stenosis. IMPRESSION: 1. No evidence of focal stenosis within the left lower extremity 2. Diffuse monophasic waveforms raising the possibility of a more proximal iliac stenosis 3. Large left lateral calf hematoma Impression Assessment and Plan 82 year old female with left patellar fracture and extensive hematoma of the left leg. Our plan for her is as follows: Left Patellar Fracture and Left lower extremity Hematoma - Secondary to fall - Elevated ESR and CRP - Considered possibility of cellulitis vs evolving osteomyelitis vs inflammatory rxn secondary to trauma - No intra-articular findings on CT to suggest septic joint - Patient is non-toxic appearing; No leukocytosis; no fever; knee and leg warm to palpation - Vancomycin given in ED (no cultures drawn prior); will obtain cultures and cover with IV Rocephin - Currently stable; per day team to determine if MRI or bone scan indicated to evaluate further - Orthopedics consulted; discussed case - Will provide knee immobilizer, gwyn wrap and elevation until seen by orthopedics - Will make NPO after midnight - Pain not in pain at rest; will provide PO oxycodone PRN and can escalate as needed Tremors - Continue Propranolol DVT Prophylaxis - HAI Evans - Will hold off on pharmacological anticoagulation in the setting of large hematoma Code Status - Level V DNR Disposition - Med/Surg - OT and PT evaluations Attending addendum: I have physically seen this patient, have supervised the medical residents activities, and agree with the H&P unless as otherwise noted. Assessment and Plan: Left patellar fracture/large left lower extremity hematoma-- Admit to medical surgical floor. Cover with vancomycin IV, has elevated ESR and CRP, which may be secondary to bone infection, infected hematoma, the hematoma itself, healing patellar fracture or other. Consulted orthopedics for their opinion. Knee immobilizer, Gwyn wrap and elevation until seen by orthopedics. Level of Care Med/Surg Resuscitation Status DO NOT RESUSCITATE VTE Prophylaxis VTE Risk Assessment Done? Y/N: Yes Risk Level: Moderate Given or contraindicated: T.E.D. Stockings, SCD's
[2017-11-24 21:20] VITALS: BP 117/76; PULSE 68; TEMP 36.5; O2SAT 93
[2017-11-24] MEDS ORDERED: IV FLUIDS COMPLETED PRN (21:30)
[2017-11-24 21:49] VITALS: BP 117/76; PULSE 68; TEMP 36.5; Ht 154.9 cm; Wt 80.4 kg
[2017-11-24] MEDS ORDERED: CEFTRIAXONE SOD INJ 1 GM in DEXTROSE 5% ADD-VANTAGE 50ML 50 ML IV SCH (22:00)
[2017-11-24 22:51] VITALS: BP 141/61; PULSE 68; TEMP 36.6; O2SAT 94
[2017-11-24] MEDS ORDERED: NYSTATIN POWDER 15GM BTL EXT PRN (23:15)
[2017-11-25 07:56] VITALS: BP 138/63; PULSE 69; TEMP 36.7; O2SAT 97
[2017-11-25] MEDS: PROPRANOLOL HCL 80 MG LA CAP PO SCH (08:31)
[2017-11-25] MEDS: ACETAMINOPHEN 325 MG TAB PO PRN (08:31)
[2017-11-25] MEDS: CALCIUM 600MG + VIT D 400 IU TAB PO SCH (08:48)
--- NOTE | 2017-11-25 10:31 | ORTHOPEDIC CONSULTATION ---
DATE OF CONSULTATION: 11/25/2017 HISTORY OF PRESENT ILLNESS: Charlotte is an 82-year-old female who fell 2 weeks ago injuring her left knee. She was seen in the Emergency Room. X-rays at that time showed no evidence of fracture. She did have some leg swelling and was described as in the Emergency Room notes as a superficial abrasion or skin tear over her left knee. No sutures were done. She was sent home. She thereafter experienced significant leg pain and swelling. She also developed some pain in the left flank area and she had that re-x-ray'd and was told she did not have any fractures. She was able to weightbear as tolerated with a walker, but noted ongoing pain from the left knee down to the left ankle along with swelling. She developed what sounds like blisters on the knee and leg area which have since drained. She denies any fevers, chest pains, shortness of breath. She came to the ER yesterday because a friend who is a nurse did not like the looks of her leg. PAST MEDICAL HISTORY: Significant for history of strokes. She denies any bleeding or blood clotting problems, high blood pressure or heart disease, lung, liver or kidney problems. She does have a history of high blood pressure. She also has a tremor. She has also had bilateral humeral fractures. MEDICATIONS: Aspirin, propranolol and vitamin. SOCIAL HISTORY: She does not smoke or drink. PHYSICAL EXAMINATION: EXTREMITIES: She has significantly long toenails which are curled around. She can wiggle her toes and flex and extend her ankle. Her foot is not swollen, red or tender. She has no tenderness of the foot or ankle. She has a nonpalpable posterior tibial pulse, but a trace palpable dorsalis pedis. Foot is warm with good capillary refill. She has normal sensation throughout the foot. There is no pain with passive movement of the ankle or toes. There is no tenderness of the foot or ankle. her Achilles appears to be intact. Log rolling of the leg is negative. She has no tenderness of the thigh or hip area. She has significant swelling with some ruborous erythema from the knee down to just above the ankle. There are some skin wrinkles present. There is a large area of fluctuance over the left lateral leg which is probably 15-20 cm long and about 10 cm wide and perhaps 3-4 cm in thickness. There is a large eschar about 10 cm long and 5 cm wide at the distal extent of this. There is no active drainage. Over the knee area, there is a 1 x 2 cm superficial eschar where she likely had her skin tear. There is no active drainage. Medial to this, there is some excoriation of the skin where she had some previous blisters which are in various stages of healing, some with eschar and some with open skin. Over the knee joint area, she has a large area of fluctuance which is probably a 10 x 15 cm. Her leg and knee are diffusely tender. She can do a straight leg raise and she can bend her knee to about 40 degrees. She has grossly intact varus and valgus stress to the knee. I cannot assess Estelita or posterior drawer secondary due to discomfort. I cannot detect a knee effusion due to the overlying swelling. LABORATORY DATA: She is afebrile. Her vital signs are stable. White count is 9, hemoglobin 10, hematocrit 32, platelets 275. INR is 1.0. Sed rate 50. C-reactive protein is 8.7. PRP is noted. BUN 20. She has had x-rays of the tib-fib which show soft tissue swelling but no acute fracture. A CT scan of the knee shows a nondisplaced longitudinal fracture of the lateral portion of the patella, which appears stable, nondisplaced and does not compromise the extensor mechanism or the structural integrity of the patella. She does not have a significant intra-articular knee effusion. The overlying large hematomas are noted. Doppler ultrasound of the arteries shows intact circulation with monophasic waveform and no obstruction distally. She may have some stenosis proximally. The venous ultrasound showed no DVT and she does have a large hematoma 25 x 8 x 3 cm. IMPRESSION: 1. Nondisplaced patellar fracture. 2. Left leg hematoma with skin blistering and necrosis. PLAN: Findings discussed. After obtaining verbal informed consent, I attempted aspiration of both of the hematomas. The leg was cleaned with saline to remove some dried blood and eschar. I then prepped with alcohol and chlorhexidine and attempted aspiration separately x2 but only got about 1 mL of blood out. A compressive Dean wrap was then applied from the toes to above the knee and the leg was elevated on several pillows. I attempted aspiration which was unsuccessful. She has a large hematoma in the front of her knee and one laterally. This has been significant enough that she has developed skin blistering. There is also perhaps some at least partial thickness and potentially full thickness skin loss on the lateral leg secondary to pressure. This could get better on its own, but will likely take some time and I think will have a prolonged recovery. There is a remote chance that the patellar fracture that she had could represent an open fracture, but given the circumstances, I think that this is unlikely. There is nothing on the x-ray. On the CT scan which would suggest bone infection. Additionally, the injury over the knee was initially described as an abrasion or skin tear rather than a laceration and did not require any stitches. I have offered her surgery to evacuate the hematomas. I think this will help protect her skin and allow things to recover more quickly. We will likely insert drains. There is a chance that she might need a wound VAC or even a skin graft depending on what happens with her skin, particularly on the lower lateral leg. She has been n.p.o., have spoken to the OR and a second crew will be called in due to the number of surgeries that are pending today and informed consent is obtained. She will receive a preop dose of IV antibiotics. She is not on any blood thinners. She did receive ceftriaxone in the ER and also a dose of vancomycin. Her inflammatory markers could be elevated simply because of the significant inflammation associated with this large hematoma. DVT prophylaxis for now with mechanical devices. Preop dose of IV antibiotics. I will likely also address her toenails at the time of the surgical procedure. She has not had these cut because they hurt and she wants to have it done with her foot anesthetized or being asleep. In the meantime, she can weightbear as tolerated. She does not require a knee immobilizer and her patellar fracture at this point does not require any significant formal treatment. She will be able to bend her knee and weightbear. She may have some cellulitis in addition to the inflammation and I think perioperative antibiotics would be prudent.
--- NOTE | 2017-11-25 10:33 | ORTHOPEDIC CONSULTATION ---
DATE OF CONSULTATION: 11/25/2017 ADDENDUM She had had a past hysterectomy and cholecystectomy. She had no problems with those surgeries. She did have 2 strokes in 1998 and 2001 and has had none since. These are felt to be secondary to smoking which she has since discontinued.
[2017-11-25 10:38] LABS: HEMATOCRIT 30.3 % (37-47); HEMOGLOBIN 10.2 g/dL (12.0-16.0); MEAN CELL VOLUME 85.1 fL (80-100); MEAN CORPUSCULAR HEMOGLOBIN 28.7 pg (25-34); MEAN CORPUSCULAR HGB CONC 33.7 g/dl (32-36); MEAN PLATELET VOLUME 8.7 fL (7.4-10.4); PLATELET COUNT 240 K/uL (130-400); RED CELL DISTRIBUTION WIDTH CV 14.9 % (11.5-14.5); RED CELL DISTRIBUTION WIDTH SD 46.3 fL (36.4-46.3); WHITE BLOOD COUNT 9.06 K/uL (4.8-10.8)
[2017-11-25 11:07] LABS: CALCIUM 8.3 mg/dl (8.5-10.1); CREATININE 0.94 mg/dl (0.60-1.20); POTASSIUM 4.2 mmol/L (3.5-5.1)
--- NOTE | 2017-11-25 11:09 | DIAGNOSTIC IMAGING REPORT ---
CHEST ONE VIEW PORTABLE HISTORY: 82 years-old Female preop preoperative exam. No acute chest complaints COMPARISON: Chest radiographs 08/20/2016 TECHNIQUE: Portable AP view of the chest FINDINGS: Cardiac silhouette is mildly enlarged, unchanged. Atherosclerosis of the aorta. Linear subsegmental left basilar opacities suggest atelectasis or scarring. There is no pneumothorax, pleural effusion, lobar airspace consolidation or overt pulmonary edema. The bones appear moderately demineralized. Healed remote fracture deformity of the proximal right humerus. IMPRESSION: Cardiomegaly without acute process. The above report was generated using voice recognition software. It may contain grammatical, syntax or spelling errors. Electronically signed by: Hosea Adkins M.D. 11/25/2017 11:08 AM Dictated Date/Time: 11/25/2017 11:07 AM
--- NOTE | 2017-11-25 11:24 | Progress Note ---
Subjective Date of Service: Nov 25, 2017. Subjective Pt evaluation today including: conversation w/ patient Ongoing pain and LE swelling. Doing well otherwise. NPO for possible OR later today. Pt denies fever, SOB, chest pain, abd pain, n/v/c/d. Problem List Medical Problems: (1) Abrasion of left knee Status: Acute (2) Cellulitis of left lower leg Status: Acute (3) Contusion of left knee Status: Acute (4) Contusion of left leg Status: Acute (5) Hematoma of lower extremity Status: Acute (6) Patella fracture Status: Acute (7) Pneumonia Status: Acute Review of Systems All Other Systems: Reviewed and Negative Objective Vital Signs Date Time Temp Pulse Resp B/P (MAP) Pulse Ox O2 Delivery O2 Flow Rate FiO2 11/25/17 07:56 36.7 69 16 138/63 (88) 97 Room Air 11/24/17 23:32 Room Air 11/24/17 22:51 36.6 68 16 141/61 (87) 94 Room Air 11/24/17 21:49 36.5 68 18 117/76 Room Air 11/24/17 21:20 36.5 68 18 117/76 (90) 93 Room Air 11/24/17 21:04 68 20 134/55 96 Room Air 11/24/17 19:55 82 28 132/65 96 11/24/17 18:55 66 15 134/60 96 11/24/17 18:24 68 11/24/17 18:20 66 131/64 93 Room Air 11/24/17 18:20 131/64 11/24/17 15:57 36.2 78 20 139/74 96 Room Air Physical Exam General Appearance: WD/WN, no apparent distress Eyes: normal inspection, sclerae normal Respiratory/Chest: normal breath sounds, no respiratory distress Cardiovascular: regular rate, rhythm, + normal peripheral pulses Abdomen: non tender, soft Extremities: + pedal edema, + pertinent finding (diffuse R LE TTP) Neurologic/Psychiatric: alert, normal mood/affect, oriented x 3 Skin: warm/dry, + pertinent finding (L LE is bandaged) Laboratory Results Last 24 Hours Test 11/24/17 16:30 11/25/17 10:18 White Blood Count 9.13 K/uL 9.06 K/uL Red Blood Count 3.80 M/uL 3.56 M/uL Hemoglobin 10.5 g/dL 10.2 g/dL Hematocrit 32.1 % 30.3 % Mean Corpuscular Volume 84.5 fL 85.1 fL Mean Corpuscular Hemoglobin 27.6 pg 28.7 pg Mean Corpuscular Hemoglobin Concent 32.7 g/dl 33.7 g/dl Platelet Count 276 K/uL 240 K/uL Mean Platelet Volume 8.3 fL 8.7 fL Neutrophils (%) (Auto) 70.3 % Lymphocytes (%) (Auto) 14.0 % Monocytes (%) (Auto) 9.7 % Eosinophils (%) (Auto) 5.1 % Basophils (%) (Auto) 0.5 % Neutrophils # (Auto) 6.40 K/uL Lymphocytes # (Auto) 1.28 K/uL Monocytes # (Auto) 0.89 K/uL Eosinophils # (Auto) 0.47 K/uL Basophils # (Auto) 0.05 K/uL RDW Standard Deviation 46.6 fL 46.3 fL RDW Coefficient of Variation 15.1 % 14.9 % Immature Granulocyte % (Auto) 0.4 % Immature Granulocyte # (Auto) 0.04 K/uL Erythrocyte Sedimentation Rate 50 mm/hr Prothrombin Time 10.1 SECONDS Prothromb Time International Ratio 1.0 Activated Partial Thromboplast Time 30.3 SECONDS Partial Thromboplastin Ratio 1.2 Sodium Level 140 mmol/L 139 mmol/L Potassium Level 4.1 mmol/L 4.2 mmol/L Chloride Level 109 mmol/L 111 mmol/L Carbon Dioxide Level 27 mmol/L 21 mmol/L Anion Gap 4.0 mmol/L 7.0 mmol/L Blood Urea Nitrogen 20 mg/dl 17 mg/dl Creatinine 1.18 mg/dl 0.94 mg/dl Est Creatinine Clear Calc Drug Dose 34.1 ml/min 42.8 ml/min Estimated GFR () 49.0 64.6 Estimated GFR (Non- 42.3 55.7 BUN/Creatinine Ratio 16.8 18.1 Random Glucose 104 mg/dl 88 mg/dl Calcium Level 8.9 mg/dl 8.3 mg/dl C-Reactive Protein 8.67 mg/dl Assessment and Plan 82 year old female with left patellar fracture and extensive hematoma of the left leg. Our plan for her is as follows: Left Patellar Fracture and Left lower extremity Hematoma - Secondary to fall - Elevated ESR and CRP L LE US neg for DVT, possible iliac stenosis noted L LE CT shows a lateral patellar fracture and hematoma Ortho planning for OR later today for hematoma evacuation Does not feel infectious etiology Will d/c abx for now - Vancomycin given in ED (no cultures drawn prior); Rocephin x1 on admission - Currently stable; per ortho to determine if MRI or bone scan indicated to evaluate further Tremors - Continue Propranolol DVT Prophylaxis - SCD Knee, HAI Hose - Will hold off on pharmacological anticoagulation in the setting of large hematoma Code Status - Level V DNR Disposition - Med/Surg - OT and PT evaluations
[2017-11-25] MEDS ORDERED: NURSING DECISION MEDICATION ORDER SCH (11:45)
[2017-11-25] MEDS ORDERED: POVIDONE-IODINE OP SOLN 30 ML BTL ONE (12:15)
[2017-11-25] MEDS ORDERED: BACITRACIN 50000 UNIT VIAL ONE (12:15)
[2017-11-25] MEDS ORDERED: DEXAMETHASONE SOD INJ 4 MG/ML VIAL ONE (12:37)
[2017-11-25] MEDS ORDERED: LIDOCAINE HCL 2% 2 ML VIAL (20MG/ML) ONE (12:37)
[2017-11-25] MEDS ORDERED: FENTANYL CITRATE INJ 50 MCG/1 ML 2 ML VIAL ONE ×2 (12:37)
[2017-11-25] MEDS ORDERED: PROPOFOL IV EMULSION 10 MG/ML 20 ML VIAL IV ONE (12:37)
[2017-11-25] MEDS ORDERED: ONDANSETRON INJ 2 MG/ML 2 ML VIAL ONE (12:37)
[2017-11-25] MEDS ORDERED: MICONAZOLE NITRATE POWDER 43 GM EXT PRN (12:45)
[2017-11-25] MEDS ORDERED: CEFAZOLIN SOD 1 GM VIAL ONE (12:51)
[2017-11-25] MEDS ORDERED: BUPIVACAINE 0.5 % 5 MG/1 ML MPF 30ML VIAL ONE (13:38)
[2017-11-25] MEDS ORDERED: SUCCINYLCHOLINE CHLORIDE 20 MG/ML 10 ML VIAL IV ONE (13:54)
--- NOTE | 2017-11-25 14:11 | [facility] Post Operative Brief Note ---
Immediate Operative Summary Operative Date Nov 25, 2017. Pre-Operative Diagnosis Left leg hematoma with skin blistering and necrosis Post-Operative Diagnosis Left leg hematoma with skin blistering and necrosis Procedure(s) Performed Incision, drainage, debridement and evacuation of left lower leg hematoma Surgeon Dr. Carvajal Program Coordinator Executive Education Surgeon(s) Ramon Lee PA-C Estimated Blood Loss 5 cc Findings Consistent with Post-Op Diagnosis Specimens none per surgeon Drains None Anesthesia Type General Complication(s) none Disposition Accompanied Pt To Recover: no Disposition: Recovery Room / PACU
--- NOTE | 2017-11-25 14:28 | [facility] Operative Report ---
Operative Report Operative Date Nov 25, 2017. Pre-Operative Diagnosis Left leg hematoma with skin blistering and necrosis, long toenails. Post-Operative Diagnosis Left leg hematoma with skin blistering and necrosis, long toenails. Procedure(s) Performed Incision, drainage, debridement and evacuation of left lower leg hematoma, trimming of bilateral toenails. Surgeon Dr. Carvajal Malt House Kiln Operator Surgeon(s) Ramon Lee PA-C Estimated Blood Loss 5 cc Findings Large left leg hematoma Specimens none per surgeon Drains None Anesthesia Type General Complication(s) none Disposition no Recovery Room / PACU Indications Patient is an 82-year-old female who fell 2 weeks ago. She is experienced significant swelling and blistering of her left leg. She came to the emergency room last evening is admitted to the hospital. She was found to have a nondisplaced lateral longitudinal patella fracture. She had x-rays ultrasound and a CT scan. No other significant injury was identified. Her extensor mechanism was intact. She may have some cellulitis. She does not have compartment syndrome. A large left leg and knee hematoma was identified. She has significant swelling some skin necrosis and resolving blisters. I think she would benefit by evacuation of the hematoma. Description of Procedure Informed consent obtained. Patient identified as Charlotte Parada. She identified the operative site as the bilateral feet and left leg. Preop surgical timeout performed. Preop dose of IV antibiotics given. She was taken to the operating room positioned supine on the OR table. The anesthetic was administered. A tourniquet was applied to the left thigh. The bulky Dean dressing was removed. There were multiple excoriations on the medial side of the knee with a large hematoma anteromedially. There was a eschar anteriorly which was debrided and this was superficial and not full-thickness. The epidermis sloughed laterally. There is a large dusky area over a large area of fluctuance lateral leg this was probably 15-20 cm long and 10 cm wide. The lower 1/3-1/2 of this had duskiness of the skin likely early necrosis versus significant bruising. A pre-scrub was performed and leg was prepped with Betadine in usual sterile fashion. Tourniquet not inflated. DVT prophylaxis with SCDs. Postoperatively early mobility and aspirin. Patient's been seen and evaluated by medicine. She is otherwise relatively healthy. Prior to the start of the procedure her long and curly toenails on both feet were trimmed with a rongeur and filed smooth. I made a anterior 5 cm incision inferior to the anterior eschar over the patellar tendon. A large hematoma was evacuated from the anterior lateral and especially medial side of the knee. Sweeping with in in the wound unfortunately caused a inferior medial skin tear about 4 cm in length. Irrigation was performed and using pressure and digital exploration the hematoma was completely evacuated. Likewise on the lateral portion of the leg if 5 cm incision was made and despite care of the skin torso about 3 cm distal into the dusky area. A large hematoma there was also evacuated followed by irrigation. This was a loculated hematoma in both areas. Both areas were irrigated with sterile saline and pulse lavage. 2 large Hemovac drains were inserted one in each wound. The 2 probably connected anterolaterally but I did not notice a strong obvious connection. The skin was then closed with 3-0 nylon simple near far far near and horizontal mattress stitches. The leg was cleaned with wet and dry sponges and a bulky soft sterile dressing was applied Xeroform 4 x 4's ABD mothers cotton and a full -length double waist from the toes above the knee. While the blood loss was fairly minimal perhaps 5 or 10 cc about 500-750 cc of coagulated blood was expressed from the hematomas. I did not see any purulence. There were no specimens. Counts were correct. Complication was inadvertent skin tear. She likely had significant fatty necrosis under the skin as well which resulted in increased friability of her skin. She was awakened from anesthesia without difficulty and taken to the recovery room in stable condition. The conclusion operation there is no unavailable to speak to she will be elevated iced will continue postop antibiotics. I did palpate her patella and the fracture was not palpable and the periosteum remained intact and I do not think that this represented an open fracture. Her patella did not require any further treatment. I also examined her knee. The knee flexed to 90 and had intact to varus valgus anterior-posterior stability. She will be able to weight -bear as tolerated and will have range of motion of her knee. There is possibility that there could be some skin necrosis particularly on the lateral side of her leg. I do not think a wound VAC is necessary currently but if full-thickness necrosis develops she may need a wound VAC or skin grafting. This was discussed with her preoperatively. I attest to the content of the Intraoperative Record and any orders documented therein. Any exceptions are noted below.
--- NOTE | 2017-11-25 14:38 | [facility] Operative Report ---
Operative Report Operative Date Nov 25, 2017. Pre-Operative Diagnosis Left leg hematoma with skin blistering and necrosis, long toenails. Post-Operative Diagnosis Left leg hematoma with skin blistering and necrosis, long toenails. Procedure(s) Performed Incision, drainage, debridement and evacuation of left lower leg hematoma, trimming of bilateral toenails. Surgeon Dr. Carvajal Wood Crafter Surgeon(s) Ramon Lee PA-C Estimated Blood Loss 5 cc Findings Large left leg hematoma Specimens none per surgeon Drains None Anesthesia Type General Complication(s) none Disposition no Recovery Room / PACU Indications This 82-year-old white female presented through the ED for a painful left leg hematoma after falling approximately 2 weeks ago. Due to the size of the hematoma, incision, drainage, and debridement were recommended. Due to the excessive length of her toenails, trimming of the toenails was also recommended. Patient elected to proceed with surgical intervention after being educated about potential risks and outcomes. Description of Procedure Patient was taken to the operating room where she was given general anesthesia. She was prepped and draped in usual sterile fashion. Please see Dr. Carvajal 's operative report for specifics of the procedure. I was present for the entire case from initial patient positioning through final wound closure. Assistance was provided in toenail trimming, tissue retraction, hemostasis, hematoma evacuation, drain placement, and final wound closure. Patient was taken to the recovery room in satisfactory condition. I attest to the content of the Intraoperative Record and any orders documented therein. Any exceptions are noted below.
[2017-11-25] MEDS ORDERED: CEFAZOLIN IV 2,000 MG in DEXTROSE 5% 50ML 50 ML IV SCH (14:45)
--- NOTE | 2017-11-25 14:50 | Anesthesiology Progress Note ---
Anesthesia Post Op Note Date & Time Nov 25, 2017 at 14:50 Vital Signs Pain Intensity: 0 Vital Signs Past 12 Hours Date Time Temp Pulse Resp B/P (MAP) Pulse Ox O2 Delivery O2 Flow Rate FiO2 11/25/17 14:45 65 14 168/63 100 Nasal Cannula 3 11/25/17 14:35 68 14 163/68 97 Nasal Cannula 3 11/25/17 14:28 36.7 68 16 174/55 97 Nasal Cannula 3 11/25/17 08:00 Room Air 11/25/17 07:56 36.7 69 16 138/63 (88) 97 Room Air Notes Mental Status: alert / awake / arousable, participated in evaluation Pt Amnestic to Procedure: Yes Nausea / Vomiting: adequately controlled Pain: adequately controlled Airway Patency, RR, SpO2: stable & adequate BP & HR: stable & adequate Hydration State: stable & adequate Anesthetic Complications: no major complications apparent
[2017-11-25 15:20] VITALS: BP 143/62; PULSE 66; TEMP 36.4; O2SAT 97
[2017-11-25 16:01] VITALS: BP 149/81; PULSE 66; TEMP 36.3; O2SAT 97
[2017-11-25 16:28] VITALS: BP 139/71; PULSE 65; TEMP 36.3; O2SAT 98
[2017-11-25 17:27] VITALS: BP 139/83; PULSE 66; TEMP 36.3; O2SAT 99
[2017-11-25] MEDS: OXYCODONE/ACETAMINOPHEN 5-325 TAB PO PRN (19:20)
[2017-11-25] MEDS: CEFAZOLIN IV 2,000 MG in SYRINGE 0 ML IV SCH (22:23)
[2017-11-25 22:46] VITALS: BP 127/73; PULSE 66; TEMP 36.5; O2SAT 100
[2017-11-26 04:04] VITALS: BP 116/66; PULSE 72; TEMP 36.6; O2SAT 94
[2017-11-26] MEDS: CEFAZOLIN IV 2,000 MG in SYRINGE 0 ML IV SCH ×2 (05:27→13:40)
[2017-11-26] MEDS ORDERED: CEFAZOLIN SOD 1000MG/7.5 ML IV PUSH IV ONE (06:00)
[2017-11-26] MEDS ORDERED: CEFAZOLIN 2000MG IV PUSH 15 ML IV SCH (06:00)
[2017-11-26 07:00] LABS: HEMOGLOBIN 9.9 g/dL (12.0-16.0); MEAN CELL VOLUME 85.2 fL (80-100); MEAN CORPUSCULAR HEMOGLOBIN 27.2 pg (25-34); MEAN CORPUSCULAR HGB CONC 31.9 g/dl (32-36); MEAN PLATELET VOLUME 8.4 fL (7.4-10.4); PLATELET COUNT 241 K/uL (130-400); RED CELL DISTRIBUTION WIDTH CV 14.8 % (11.5-14.5); RED CELL DISTRIBUTION WIDTH SD 46.4 fL (36.4-46.3); WHITE BLOOD COUNT 8.01 K/uL (4.8-10.8)
[2017-11-26 07:37] VITALS: BP 108/64; PULSE 71; TEMP 36.6; O2SAT 94
[2017-11-26 07:43] LABS: CALCIUM 8.3 mg/dl (8.5-10.1); CREATININE 1.06 mg/dl (0.60-1.20)
[2017-11-26] MEDS: PROPRANOLOL HCL 80 MG LA CAP PO SCH (09:45)
[2017-11-26] MEDS: OXYCODONE/ACETAMINOPHEN 5-325 TAB PO PRN ×2 (09:45→22:24)
[2017-11-26] MEDS: CALCIUM 600MG + VIT D 400 IU TAB PO SCH (09:47)
[2017-11-26] MEDS: ASPIRIN 81 MG ECTAB PO SCH (10:23)
--- NOTE | 2017-11-26 11:30 | PROGRESS NOTE ---
DATE: 11/26/2017 SUBJECTIVE: She is sitting up in a chair with her legs elevated. Pain is controlled with medicine. She has no significant issues or complaints. There result and findings of the surgery are discussed with her including the skin tears. She is afebrile. Her vital signs are stable. Her urine output was adequate yesterday. LABORATORY DATA: White count 8, hemoglobin 10, hematocrit 31, platelets 241. PRP is noted. Output of her drains is diminishing. 25 for Hemovac #1, 10 for Hemovac #2 over the past shift. PHYSICAL EXAMINATION: The dressing is clean and dry. Dorsalis pedis 1+. Sensation normal, ankle and toe plantar flexion and dorsiflexion 5/5. IMPRESSION: 1. Left knee longitudinal lateral stable fracture of the patella. 2. A large left knee and leg hematoma status post fall, status post evacuation. PLAN: Findings are discussed. Continue elevation, pain medicine, aspirin for DVT prophylaxis, weightbearing as tolerated, knee range of motion, hemovacs. We will plan on changing the dressing tomorrow and depending on the output consider removing the Hemovacs. The patient may need to go to a rehab facility or fdc facility or may need to have home wound care depending on what her nursing related wound care needs are. She may weightbear as tolerated. We will continue her antibiotics until we evaluate her wound tomorrow and then reevaluate. Continue PT, OT.
[2017-11-26 15:11] VITALS: BP 135/72; PULSE 70; TEMP 36.3; O2SAT 93
--- NOTE | 2017-11-26 16:02 | Progress Note ---
Subjective Date of Service: Nov 26, 2017. Subjective Pt evaluation today including: conversation w/ patient, conversation w/ family Feeling better. Tolerating PO. Eating [employer] with family. Ongoing LE swelling. Pt denies fever, SOB, chest pain, abd pain, n/v/c/d. Problem List Medical Problems: (1) Abrasion of left knee Status: Acute (2) Cellulitis of left lower leg Status: Acute (3) Contusion of left knee Status: Acute (4) Contusion of left leg Status: Acute (5) Hematoma of lower extremity Status: Acute (6) Patella fracture Status: Acute (7) Pneumonia Status: Acute Review of Systems All Other Systems: Reviewed and Negative Objective Vital Signs Date Time Temp Pulse Resp B/P (MAP) Pulse Ox O2 Delivery O2 Flow Rate FiO2 11/26/17 15:11 36.3 70 20 135/72 (93) 93 Room Air 11/26/17 10:08 Room Air 11/26/17 07:37 36.6 71 16 108/64 (79) 94 Room Air 11/26/17 04:04 36.6 72 16 116/66 (83) 94 Room Air 11/26/17 00:27 Room Air 11/25/17 22:46 36.5 66 16 127/73 (91) 100 Room Air 11/25/17 17:27 36.3 66 16 139/83 (101) 99 Nasal Cannula 3.0 11/25/17 16:28 36.3 65 16 139/71 (93) 98 Nasal Cannula 3.0 11/25/17 16:01 36.3 66 16 149/81 (103) 97 Nasal Cannula 3.0 Physical Exam Comments: General Appearance: WD/WN, no apparent distress Eyes: normal inspection, sclerae normal Respiratory/Chest: normal breath sounds, no respiratory distress Cardiovascular: regular rate, rhythm, + normal peripheral pulses Abdomen: non tender, soft Extremities: + pedal edema, + pertinent finding (diffuse R LE TTP) Neurologic/Psychiatric: alert, normal mood/affect, oriented x 3 Skin: warm/dry, + pertinent finding (L LE is bandaged) Laboratory Results Last 24 Hours Test 11/26/17 06:43 White Blood Count 8.01 K/uL Red Blood Count 3.64 M/uL Hemoglobin 9.9 g/dL Hematocrit 31.0 % Mean Corpuscular Volume 85.2 fL Mean Corpuscular Hemoglobin 27.2 pg Mean Corpuscular Hemoglobin Concent 31.9 g/dl RDW Standard Deviation 46.4 fL RDW Coefficient of Variation 14.8 % Platelet Count 241 K/uL Mean Platelet Volume 8.4 fL Sodium Level 139 mmol/L Potassium Level 4.0 mmol/L Chloride Level 109 mmol/L Carbon Dioxide Level 22 mmol/L Anion Gap 8.0 mmol/L Blood Urea Nitrogen 12 mg/dl Creatinine 1.06 mg/dl Est Creatinine Clear Calc Drug Dose 37.9 ml/min Estimated GFR () 55.8 Estimated GFR (Non- 48.2 BUN/Creatinine Ratio 11.8 Random Glucose 73 mg/dl Calcium Level 8.3 mg/dl Assessment and Plan 82 year old female with left patellar fracture and extensive hematoma of the left leg. Our plan for her is as follows: Left Patellar Fracture and Left lower extremity Hematoma - Secondary to fall - Elevated ESR and CRP L LE US neg for DVT, possible iliac stenosis noted L LE CT shows a lateral patellar fracture and hematoma s/p OR 11/25 for hematoma evacuation Does not feel infectious etiology Will d/c abx for now other than ortho post-op abx as per their discretion - Vancomycin given in ED (no cultures drawn prior); Rocephin x1 on admission - Currently stable; per ortho to determine if MRI or bone scan indicated to evaluate further Ortho expressed concern post-op that pt may need skin grafting due to extent of skin tear Tremors - Continue Propranolol DVT Prophylaxis - SCD Knee, HAI Hose - Will hold off on pharmacological anticoagulation in the setting of large hematoma Code Status - Level V DNR Disposition - Med/Surg - OT and PT evaluations
[2017-11-26] MEDS: ACETAMINOPHEN 325 MG TAB PO PRN (18:43)
[2017-11-26 23:20] VITALS: BP 131/78; PULSE 71; TEMP 36.7; O2SAT 94
[2017-11-27 07:59] VITALS: BP 132/78; PULSE 64; TEMP 36.6; O2SAT 95
[2017-11-27 08:54] VITALS: O2SAT 95
[2017-11-27] MEDS: OXYCODONE/ACETAMINOPHEN 5-325 TAB PO PRN ×3 (09:25→23:32)
[2017-11-27] MEDS: PROPRANOLOL HCL 80 MG LA CAP PO SCH (09:25)
[2017-11-27] MEDS: CALCIUM 600MG + VIT D 400 IU TAB PO SCH (09:25)
[2017-11-27] MEDS: ASPIRIN 81 MG ECTAB PO SCH (09:25)
--- NOTE | 2017-11-27 09:37 | PROGRESS NOTE ---
DATE: 11/27/2017 Resting comfortably in bed. No problems. She is afebrile. Vital signs are stable. No labs today. Drain output is 5 mL for each for the last shift. Dorsalis pedis 1+. Sensation intact. Swelling minimal. 5/5 ankle and toe plantar flexion and dorsiflexion strength. Dressing is changed. There is minimal fluid reaccumulation. The appearance of the lateral leg wound is essentially unchanged with a large dark eschar about 6 cm in diameter. There is some dark discoloration at the apex of the proximal incision skin flap, where the tear of the skin occurred. The leg is cleaned and then redressed with Xeroform, 4 x 4's, ABD and Gwyn wrap. IMPRESSION: 1. Skin tear. 2. Left leg heat hematoma. 3. Stable and marginal left lateral patellar fracture. PLAN: She can do ankle pumps, quad sets, leg raises, and knee range of motion. She can weightbear as tolerated with assistive device. Swelling is markedly improved. There is some pinkish discoloration of the skin, but she does have some changes consistent with chronic venous stasis bilaterally. I do not know if there is any obvious cellulitis present. Given the beat-up nature of her skin with blistering and prior drainage, I think it is reasonable to continue some prophylactic antibiotics. I think it is reasonable to consider discharge either home with home nursing for dressing change if her environment is safe. The other option would be rehab facility or fci for a short stay. Her wound will need to be monitored. She may need a wound care services, but I will arrange that if and when necessary. She should follow up with my office on Monday of this week. When she is discharged, I would place her on a 3-5 day course of oral Keflex 500 q.i.d. or Bactrim-DS 1 p.o. b.i.d. She may have her dressing changed every other day with home nursing. Xeroform, 4 x 4's, ABD and a full length Gwyn wrap. She is to have the leg strictly elevated.
[2017-11-27 15:26] VITALS: BP 129/82; PULSE 68; TEMP 36.5; O2SAT 94
--- NOTE | 2017-11-27 17:19 | Progress Note ---
Subjective Date of Service: Nov 27, 2017. Subjective Pt evaluation today including: conversation w/ patient, conversation w/ family , physical exam, chart review, lab review, review of studies, conversation w/ sales consultant insurance, review of inpatient medication list Sitting in chair, pain fairly controlled, left knee in dressing, no other complaint Problem List Medical Problems: (1) Abrasion of left knee Status: Acute (2) Cellulitis of left lower leg Status: Acute (3) Contusion of left knee Status: Acute (4) Contusion of left leg Status: Acute (5) Hematoma of lower extremity Status: Acute (6) Patella fracture Status: Acute (7) Pneumonia Status: Acute Review of Systems Constitutional: + weakness, + fatigue, No fever, No chills, No sweats, No weight loss, No problem reported Eyes: No worsening of vision, No eye pain, No redness, No discharge, No diplopia ENT: No hearing loss, No unusual epistaxis, No nasal symptoms, No sore throat, No tinnitus, No dental problems, No trouble swallowing Respiratory: No cough, No sputum, No wheezing, No shortness of breath, No dyspnea on exertion, No dyspnea at rest, No hemoptysis Cardiac: No chest pain, No orthopnea, No PND, No edema, No claudication, No palpitations Abdomen: No pain, No nausea, No vomiting, No diarrhea, No constipation Musculoskeletal: + joint pain, No muscle pain, No swelling, No calf pain Female : No dysuria, No urinary frequency, No hematuria, No incontinence, No abnormal vaginal bleeding, No vaginal discharge Neurologic: No memory loss, No paralysis, No weakness, No numbness/tingling, No vertigo, No balance problems Psychiatric: No depression symptoms, No anhedonism, No anxiety, No insomnia, No substance abuse Heme: No abnormal bleeding/bruising, No clotting problems, No swollen lymph nodes, No night sweats Endo: No fatigue, No excessive thirst, No excessive urination Skin: No rash, No itch, No new/changing skin lesions, No color change, No bleeding Objective Vital Signs Date Time Temp Pulse Resp B/P (MAP) Pulse Ox O2 Delivery O2 Flow Rate FiO2 11/27/17 15:26 36.5 68 18 129/82 (98) 94 Room Air 11/27/17 08:54 95 Room Air 11/27/17 07:59 36.6 64 14 132/78 (96) 95 Room Air 11/27/17 07:30 Room Air 11/26/17 23:30 Room Air 2.0 11/26/17 23:20 36.7 71 18 131/78 (95) 94 Room Air Physical Exam General Appearance: WD/WN, no apparent distress, + obese Eyes: normal inspection, PERRL, EOMI, sclerae normal ENT: normal ENT inspection, hearing grossly normal, pharynx normal Neck: supple, no adenopathy, thyroid normal, no JVD, no carotid bruits, trachea midline Respiratory/Chest: chest non-tender, normal breath sounds, no respiratory distress, no accessory muscle use, + decreased breath sounds Cardiovascular: regular rate, rhythm, no edema, no gallop, no JVD, no murmur Abdomen: normal bowel sounds, non tender, soft, no organomegaly, no pulsatile mass Extremities: normal capillary refill, pelvis stable, + pertinent finding (Left knee in dressing, left lower extremity no swelling, calf was nontender, capillary refill was normal, no clubbing no cyanosis) Neurologic/Psychiatric: service worker II-XII nml as tested, no motor/sensory deficits, alert, normal mood/affect, oriented x 3 Skin: normal color, warm/dry, no rash Lymphatic: no adenopathy Assessment and Plan 82 year old female with left patellar fracture and extensive hematoma of the left leg. had Left Patellar Fracture and Left lower extremity Hematoma on 2017 for hematoma evacuation, today's postop day 2, doing well Recommendation of orthopedic: Patient came to ankle pumps, quad sets, leg raises , and knee range of motion. She can weightbear as tolerated with assistive device. Orthopedic surgeon feels it is reasonable to continue some prophylactic antibiotics, will give Keflex for total 5 days, patient needs to be follow-up with orthopedic surgeon on Monday of this week. Patient need to have her dressing changed every other day while in rehab, Xeroform, 4 x 4's, ABD and a full length Gwyn wrap. She is to have the leg strictly elevated. Patient will discharge to [facility] tomorrow Continued [facility] stay due to: home environment unsafe for pt Discharge planning: rehab hospital
[2017-11-27] MEDS ORDERED: CEPHALEXIN MONOHYDRATE 500 MG CAP PO ONE (17:30)
[2017-11-27 23:20] VITALS: BP 133/73; PULSE 72; TEMP 36.7; O2SAT 94
[2017-11-28 07:15] VITALS: BP 127/79; PULSE 71; TEMP 37.1; O2SAT 92
[2017-11-28] MEDS: PROPRANOLOL HCL 80 MG LA CAP PO SCH (08:43)
[2017-11-28] MEDS: ASPIRIN 81 MG ECTAB PO SCH (08:44)
[2017-11-28] MEDS: CALCIUM 600MG + VIT D 400 IU TAB PO SCH (08:44)
[2017-11-28] MEDS ORDERED: CEPHALEXIN MONOHYDRATE 500 MG CAP PO SCH (09:00)
--- NOTE | 2017-11-28 09:35 | Consultant Recommendations ---
Veneer Drier Tailer Recommendations Date of Service Nov 28, 2017. Veneer Drier Tailer Recommendations Patient should do ankle pumps, quad sets, leg raises, and knee range of motion. She can weightbear as tolerated with assistive device. Keflex 500 q.i.d. x 5 days. Change dressing every other day. Reapply Xeroform, 4 x 4's, ABD and a full length Gwyn wrap. Re-inforce as needed. Keep left leg strictly elevated. Follow up with Dr. Carvajal/Penny Munguia PA-C on Monday12/04/2017 at 10:45 a.m.
[2017-11-28] MEDS: OXYCODONE/ACETAMINOPHEN 5-325 TAB PO PRN (10:04)
--- NOTE | 2017-11-28 10:15 | Orthopedic Progress Note ---
Orthopedic Progress Note Date of Service Nov 28, 2017. Subjective Post OP Day: 3 Reports: feeling well, pain controlled w PO medications, Denies: complaints, chest pain, SOB, nausea / vomiting, light headedness, calf pain Objective calves soft nontender, capillary refill less than 2 sec., A&O x3, toes mobile Dressing with small amount of serous drainage. Reinforced today with ABD and 4x4. Strength 5/5. Able to straight leg raise. Date Time Temp Pulse Resp B/P (MAP) Pulse Ox O2 Delivery O2 Flow Rate FiO2 11/28/17 07:15 37.1 71 18 127/79 (95) 92 Room Air 11/27/17 23:30 Room Air 11/27/17 23:20 36.7 72 16 133/73 (93) 94 Room Air 11/27/17 15:55 Room Air 11/27/17 15:26 36.5 68 18 129/82 (98) 94 Room Air Assessment & Plan Assessment: S/P I&D, evacuation of hematoma left leg, toe nail trimming with Dr. Carvajal on 11/26/17 Plan: Keep dressings intact. Reinforce as needed. Change every other day. Last change yesterday. WBAT LLE with assistance of a walker Elevate left leg at all times to relieve swelling. Pain medication as prescribed Discharge to [facility] today. Discharge on oral Keflex as per Dr. Carvajal and Dr. Loja. Follow up as outpatient on Monday12/04/17 for dressing change. Call [phone] with any questions. All questions answered, will discuss findings with Dr. Carvajal.
[2017-11-28] MEDS ORDERED: NYSP EXT (12:30)
[2017-11-28] MEDS ORDERED: OXYC-57 PO (12:30)
[2017-11-28] MEDS ORDERED: KFL500 PO (12:30)
[2017-11-28] MEDS ORDERED: MRLP17X PO (12:30)
--- NOTE | 2017-11-28 12:31 | Discharge Instructions ---
Discharge Instructions Date of Service Nov 28, 2017. Admission Reason for Admission: Hematoma Discharge Discharge Diagnosis / Problem: Left patellar fracture and extensive hematoma Discharge Goals Goal(s): Decrease discomfort, Improve function, Increase independence, Improve disease control, Improve nutritional status, Learn about illness, Diagnostic testing, Therapeutic intervention, Prevent Disease Progression, Specific goals Activity Recommendations Activity Level: Up Ad Tere, Assistance Required Therapies: Physical Therapy, Occupational Therapy . Additional Information Patient informed of condition: Yes Advance Directives: Yes DNR: Yes Level of Care: Acute Rehab Communicable Disease: No Prognosis: Stable Lau Catheter: No Instructions / Follow-Up Instructions / Follow-Up you have left patellar fracture and extensive hematoma of the left leg. had for hematoma evacuation on 11/25/2017 , you need to follow up with orho as instructed, such as: can weight bear as tolerated with assistive device. you need to be follow-up with orthopedic surgeon on Monday of this week, HSR please arrange this appointment you need to have her dressing changed every other day while in rehab, Xeroform, 4 x 4's, ABD and a full length Gwyn wrap. - you need to follow up with your primary care physician in 1 week, - take medication as instructed, never overdose or any misuse, or take with alcohol, because misuse of medicine may cause organ damage or , call your primary care physician if have questions of medicaitons. - call your primary care physician OR go to local emergency room if has any fever/chill, chest pain, shortness of breathing, nausea/vomiting/abdominal pain , facial droop/slurry speech/local weakness, or if has any questions. - fall precaution - diet as instructed - you need to follow up with your subspecialist Current Hospital Diet Patient's current hospital diet: Regular Diet Discharge Diet Recommended Diet: AHA Diet (Heart Healthy) Procedures Procedures Performed: Incision, drainage, debridement and evacuation of left lower leg hematoma, trimming of bilateral toenails. Pending Studies Studies pending at discharge: no Medical Emergencies . Who to Call and When: Medical Emergencies: If at any time you feel your situation is an emergency, please call 911 immediately. . Non-Emergent Contact Non-Emergency issues call your: Primary Care Provider, Specialist (orho) Call Non-Emergent contact if: you have a fever . . "Provider Documentation" section prepared by Ye Loja. . Stud Master/Mistress Recommendations Stud Master/Mistress Recommendations: Patient should do ankle pumps, quad sets, leg raises, and knee range of motion. She can weightbear as tolerated with assistive device. Keflex 500 q.i.d. x 5 days. Change dressing every other day. Reapply Xeroform, 4 x 4's, ABD and a full length Gwyn wrap. Re-inforce as needed. Keep left leg strictly elevated. Follow up with Dr. Carvajal/Penny Munguia PA-C on Monday12/04/2017 at 10:45 a.m. Core Measure Problem Core Measures: None
--- NOTE | 2017-11-28 12:55 | Discharge Summary ---
Discharge Summary Date of Service Nov 28, 2017. Discharge Summary Admission Date: Nov 26, 2017 at 08:08 Discharge Date: Nov 28, 2017 Principal Diagnosis: left patellar fracture and extensive hematoma Immunizations: Have You Had Influenza Vaccine: No History of Tetanus Vaccine?: No History of Pneumococcal: No History of Hepatitis B Vaccine: No Procedures: extensive hematoma of the left leg, had for hematoma evacuation on 11/25/2017 Consultations: Orthopedic Medication Reconciliation New Medications: Cephalexin Monohydrate (Cephalexin) 500 Mg Cap 500 MG PO BID for 3 Days, #6 CAP Nystatin (Nystop) 45 Appln/15 Gm Powd 1 APPLN EXT DAILY PRN for fingal infection in skin folds for 14 Days Oxycodone/Acetaminophen 5MG/325MG (Percocet 5MG/325MG) Tab 1 TAB PO Q4H PRN for Pain for 3 Days, #10 TAB PAIN Polyethylene (Miralax) 17 Gm Pow 17 GM PO DAILY PRN for Constipation for 7 Days Continued Medications: Aspirin (Sindhu Aspirin Ec Low Dose) 81 Mg Tab 81 MG PO HOLD MEDICATION CURRENTLY BEING HELD UNTIL OTHERWISE DIRECTED TO TAKE BY Multiple Vitamins W/ Minerals ([employer] Health Formula) 1 Cap Cap 1 CAP PO DAILY Propranolol Hcl (Propranolol Hcl Er) 160 Mg Cap 160 MG PO DAILY Discharge Exam Sitting in chair doing well, no complaint, no fever and chill, deny left lower extremity tingling and numbness, Review of Systems: Constitutional: No fever, No chills, No sweats, No weight loss, No weakness , No fatigue, No problem reported Eyes: No worsening of vision, No eye pain, No redness, No discharge, No diplopia, No problem reported ENT: No hearing loss, No unusual epistaxis, No nasal symptoms, No sore throat, No tinnitus, No dental problems, No trouble swallowing, No problem reported Respiratory: No cough, No sputum, No wheezing, No shortness of breath, No dyspnea on exertion, No dyspnea at rest, No hemoptysis, No problem reported Abdomen: No pain, No nausea, No vomiting, No diarrhea, No constipation, No GI bleeding, No problem reported Musculoskeletal: + joint pain, + problem reported (See HPI) Genitourinary - Female: No dysuria, No urinary frequency, No urinary urgency , No urinary incontinence, No urinary retention, No hematuria, No dysmenorrhea, No menorrhagia, No metrorrhagia, No rash, No vaginal bleeding, No vaginal discharge, No vaginal itching, No vulvodynia, No , No problem reported Neurologic: No memory loss, No paralysis, No weakness, No numbness/tingling , No vertigo, No balance problems, No problem reported Psychiatric: No depression symptoms, No anhedonism, No anxiety, No insomnia , No substance abuse, No problem reported Endocrine: No fatigue, No excessive thirst, No excessive urination, No problem reported Hematologic / Lymphatic: No abnormal bleeding/bruising, No clotting problems , No swollen lymph nodes, No night sweats, No problem reported Integumentary: No rash, No itch, No new/changing skin lesions, No color change, No bleeding, No problem reported Physical Exam: General Appearance: WD/WN, no apparent distress, + obese Eyes: normal inspection, PERRL ENT: normal ENT inspection, hearing grossly normal Neck: supple, no adenopathy, thyroid normal Respiratory/Chest: chest non-tender, normal breath sounds, no respiratory distress, no accessory muscle use, + decreased breath sounds Cardiovascular: regular rate, rhythm, no edema, no gallop, no JVD Abdomen / GI: normal bowel sounds, non tender, soft, no organomegaly, no pulsatile mass Extremities: normal inspection, no calf tenderness, + pertinent finding ( Left knee in dressing, left foot has no edema cyanosis or clubbing) Neurologic/Psychiatric: de icer II-XII nml as tested, no motor/sensory deficits , alert, normal mood/affect, normal reflexes, oriented x 3 Skin: normal color, warm/dry, no rash Hospital Course 82 year old female with left patellar fracture and extensive hematoma of the left leg. had Left Patellar Fracture and Left lower extremity Hematoma hematoma evacuation on 11/25/2017 for, today's postop day 3, doing well per note: Left Patellar Fracture and Left lower extremity Hematoma, secondary to fall. Considered possibility of cellulitis vs evolving osteomyelitis vs inflammatory rxn secondary to trauma, No intra-articular findings on CT to suggest septic joint, upon admission patient is non-toxic appearing; No leukocytosis; no fever; knee and leg warm to palpation Initially vancomycin given in ED (no cultures drawn prior), and then cover with IV Rocephin Orthopedics consulted; discussed case, Left lower extremity Hematoma hematoma evacuation on 11/25/2017 for, today's postop day 3, doing well, has been out of bed to chair, PT OT evaluation and treatment, pain fairly good control Recommendation of orthopedic: Patient came to ankle pumps, quad sets, leg raises , and knee range of motion. She can weightbear as tolerated with assistive device. Orthopedic surgeon feels it is reasonable to continue some prophylactic antibiotics, will give Keflex for total 5 days, patient needs to be follow-up with orthopedic surgeon on Monday of this week. Patient need to have her dressing changed every other day while in rehab, Xeroform, 4 x 4's, ABD and a full length Gwyn wrap. She is to have the leg strictly elevated. Tremors, Continue Propranolol Patient will discharge to [facility] Instructions / Follow-Up you have left patellar fracture and extensive hematoma of the left leg. had for hematoma evacuation on 11/25/2017 , you need to follow up with orho as instructed, such as: can weight bear as tolerated with assistive device. you need to be follow-up with orthopedic surgeon on Monday of this week, HSR please arrange this appointment you need to have her dressing changed every other day while in rehab, Xeroform, 4 x 4's, ABD and a full length Gwyn wrap. - you need to follow up with your primary care physician in 1 week, - take medication as instructed, never overdose or any misuse, or take with alcohol, because misuse of medicine may cause organ damage or , call your primary care physician if have questions of medicaitons. - call your primary care physician OR go to local emergency room if has any fever/chill, chest pain, shortness of breathing, nausea/vomiting/abdominal pain , facial droop/slurry speech/local weakness, or if has any questions. - fall precaution - diet as instructed - you need to follow up with your subspecialist Total Time Spent: Greater than 30 minutes This includes examination of the patient, discharge planning, medication reconciliation, and communication with other providers. Discharge Instructions Please refer to the electronic Patient Visit Report (Discharge Instructions) for additional information. Additional Copies To Stan Love M.D.; Roddy Carvajal M.D.
[2017-11-28 14:04] VITALS: BP 127/79; PULSE 71; TEMP 37.1; O2SAT 92
== END 2017-11-28 14:20 | DRG 605 ==
LOC: C.EDB 15:56 → C.MSW 20:12 → EDBEDREQ 20:14 → EDBEDREQSVC 20:14 → ENRESERV 20:37 → OBSVTOIN 11-26 08:08
PROVIDERS: ADMIT Student in an Organized Health Care Education/Training Program; ATTEND Hospitalist
PROC: 0JCP0ZZ Extirpation of Matter from Left Lower Leg Subcutaneous Tissue and Fascia, Open Approach (ICD-10-PCS; principal; 2017-11-25 12:00)
PROC: 0HDLXZZ Extraction of Left Lower Leg Skin, External Approach (ICD-10-PCS; principal; 2017-11-25 12:00)
PROC: 0HBRXZZ Excision of Toe Nail, External Approach (ICD-10-PCS; principal; 2017-11-25 12:00)
DX: S80.12XA Contusion of left lower leg, initial encounter (principal); S82.025A Nondisplaced longitudinal fracture of left patella, initial encounter for closed fracture; I96 Gangrene, not elsewhere classified; L03.112 Cellulitis of left axilla; L60.2 Onychogryphosis; I70.202 Unspecified atherosclerosis of native arteries of extremities, left leg; I10 Essential (primary) hypertension; R25.1 Tremor, unspecified; Z79.899 Other long term (current) drug therapy; Z79.82 Long term (current) use of aspirin; Z66 Do not resuscitate; Z86.73 Personal history of transient ischemic attack (TIA), and cerebral infarction without residual deficits; Z87.891 Personal history of nicotine dependence; Z88.8 Allergy status to other drugs, medicaments and biological substances; Z82.3 Family history of stroke; W19.XXXA Unspecified fall, initial encounter; Y92.009 Unspecified place in unspecified non-institutional (private) residence as the place of occurrence of the external cause

== ENCOUNTER → 2017-12-08 | Outpatient (CLI) | payer OTHER ==
[~2017-12-08] MED LIST changes: +KFL500 PO; +MRLP17X PO; +NYSP EXT; +OXYC-57 PO
== END | disposition home or self-care (01) ==
LOC: C.RDSM 13:05
PROVIDERS: ATTEND Physical Medicine & Rehabilitation Sports Medicine
DX: S81.802A Unspecified open wound, left lower leg, initial encounter (principal); X58.XXXA Exposure to other specified factors, initial encounter

== ENCOUNTER → 2017-12-25 | Outpatient (CLI) | payer OTHER ==
[~2017-12-25] MED LIST changes: -KFL500 PO; -NYSP EXT; -OXYC-57 PO
--- NOTE | 2017-12-25 11:54 | DIAGNOSTIC IMAGING REPORT ---
L KNEE 3 VIEWS HISTORY: 82 years-old Female LEFT PATELLA FX acute left knee pain with patellar fracture COMPARISON: Left knee radiographs 12/08/2017. TECHNIQUE: 3 views of the left knee FINDINGS: Bones are mildly demineralized. Mild tricompartmental osteoarthritis. Acute appearing nondisplaced fracture involves the lateral patellar facet with intra-articular extension. No displaced fragment identified. Moderate soft tissue swelling circumferentially about the knee with suspected trace joint effusion. No opaque foreign body. IMPRESSION: 1. Acute nondisplaced fracture involves the lateral patellar facet. 2. Moderate soft tissue swelling about the knee. 3. Osteopenic appearance of the bones. The above report was generated using voice recognition software. It may contain grammatical, syntax or spelling errors. Electronically signed by: Hosea Adkins M.D. 12/25/2017 11:52 AM Dictated Date/Time: 12/25/2017 11:50 AM
== END | disposition home or self-care (01) ==
LOC: C.RDSM 17:16
PROVIDERS: ATTEND Physician Assistant
DX: S82.002A Unspecified fracture of left patella, initial encounter for closed fracture (principal); X58.XXXA Exposure to other specified factors, initial encounter

== ENCOUNTER → 2018-01-09 | Outpatient (CLI) | payer OTHER | END | disposition home or self-care (01) | LOC: C.RDSM 16:32 | PROVIDERS: ATTEND Physical Medicine & Rehabilitation Sports Medicine | DX: S82.025D Nondisplaced longitudinal fracture of left patella, subsequent encounter for closed fracture with routine healing (principal); S81.802D Unspecified open wound, left lower leg, subsequent encounter; X58.XXXD Exposure to other specified factors, subsequent encounter ==

== ENCOUNTER 2018-04-30 17:24 | Emergency (ER) | payer OTHER ==
[~2018-04-30 17:24] MED LIST changes: +CEPH500C PO
[2018-04-30 17:43] VITALS: Ht 154.9 cm
[2018-04-30] MEDS ORDERED: METOCLOPRAMIDE HCL INJ 5 MG/ML 2 ML VIAL IV. STA (18:09)
[2018-04-30] MEDS ORDERED: GLUCAGON FOR INJ 1 MG VIAL IV STA (18:09)
--- NOTE | 2018-04-30 18:11 | EMERGENCY ROOM VISIT NOTE ---
History Report prepared by Georginaibjoe: Laurel Gutiérrez Under the Supervision of: Dr. Manjit Herron M.D. First contact with patient: 18:03 Chief Complaint: FOOD BOLUS Stated Complaint: MEAT STUCK IN THROAT History of Present Illness The patient is a 82 year old white female with a past medical history of HTN and pneumonia who presents to the ED with a cc of constant throat pain beginning 1.5 to 2 hours ago. She notes she was eating when a piece of steak became lodged in her throat. The patient states she is unable to swallow, both due to the meat stuck in her throat and her pain. She denies any trouble breathing, changes to her voice, nausea, or vomiting. The patient reports her last bowel movement was this morning. She denies any history of similar incidents of food stuck in her throat. Source of History: patient Onset: 1.5 to 2 hours ago Position: throat Quality: other (throat pain) Timing: constant Associated Symptoms: No SOB, No nausea, No vomiting Note: Associated symptom: inability to swallow Review of Systems See HPI for pertinent positives and negatives. A total of ten systems were reviewed and were otherwise negative. Past Medical & Surgical Medical Problems: (1) Community acquired bacterial pneumonia (2) Fall (3) Headache (4) Hematoma (5) Hypertension (6) Left tibial fracture (7) Patellar fracture (8) Patellar fracture Family History Cancer Stroke MOTHER Social History Smoking Status: Former Smoker Alcohol Use: occasionally Drug Use: none Marital Status: Housing Status: lives with family Occupation Status: retired Current/Historical Medications Scheduled Aspirin (Sindhu Aspirin Ec Low Dose), 81 MG PO HOLD Cephalexin Monohydrate (Keflex), 1 CAP PO TID Multiple Vitamins W/ Minerals (Macular Health Formula), 1 CAP PO DAILY Propranolol Hcl (Propranolol Hcl Er), 160 MG PO DAILY Scheduled PRN Polyethylene (Miralax), 17 GM PO DAILY PRN for Constipation Allergies Coded Allergies: Furosemide (Verified Allergy, Intermediate, water blisters, 11/12/17) Physical Exam Vital Signs Date Time Temp Pulse Resp B/P (MAP) Pulse Ox O2 Delivery O2 Flow Rate FiO2 04/30/18 22:10 36.6 74 20 163/92 (115) 95 Room Air 04/30/18 21:40 36.6 75 24 166/88 (114) 94 Room Air 8/13/18 21:38 36.6 75 24 166/88 94 Room Air 04/30/18 21:35 36.6 75 24 177/86 94 Room Air 04/30/18 21:25 75 20 164/79 94 Room Air 04/30/18 21:15 74 20 178/84 97 Nasal Cannula 2 04/30/18 21:05 75 20 192/99 98 Oxymask 2 04/30/18 20:58 36.9 76 24 139/97 100 Oxymask 2 04/30/18 20:07 77 16 187/92 98 Room Air 04/30/18 18:46 97 Room Air 04/30/18 18:44 75 24 196/94 96 Room Air 04/30/18 18:18 75 04/30/18 18:10 95 Room Air 95 04/30/18 17:43 36.6 73 18 146/85 95 Room Air Physical Exam GENERAL: Awake, alert, well-appearing, NAD, wearing glasses. HENT: Normocephalic, atraumatic. Non-stridulous, posterior pharynx clear with no foreign bodies visualized. EYES: Normal conjunctiva. Sclera non-icteric. PERRL. No anisocoria. NECK: Supple. No nuchal rigidity. FROM. RESPIRATORY: CTAB, no rhonchi, wheezing, crackles CARDIAC: RRR, no MRG ABDOMEN: Soft, NTND, BS+ MSK: No chest wall TTP, no LE edema NEURO: GCS 15, CN 2-12 intact, moves all 4s on command SKIN: No rash or jaundice noted. Medical Decision & Procedures Medications Administered Medications (Trade) Dose Ordered Sig/Georgette Route Start Time Stop Time Status Last Admin Dose Admin Glucagon (Glucagon Inj) 0.5 mg NOW STAT IV 04/30/18 18:09 04/30/18 18:13 DC 04/30/18 18:35 0.5 MG Metoclopramide HCl (Reglan Inj) 10 mg NOW STAT IV. 04/30/18 18:09 04/30/18 18:13 DC 04/30/18 18:35 10 MG ED Course 1804: The patient was evaluated in room C5. A complete history and physical exam was performed. 1808: Ordered Reglan Inj 10 mg IV, Glucagon Inj 0.5 mg. 1852: Upon reevaluation, the patient is not having improvement of her symptoms. 1901: Discussed the patient's case with GENE Ricketts. They recommend consulting GI. 1909: Reviewed the patient's case with VIET Gregory. He will scope the patient. 1933: I reevaluated and updated the patient. 2912: I discussed the case again with VIET Gregory. The patient will be taken to the OR. Medical Decision The patient is a 82 year old white female with a past medical history of HTN and pneumonia who presents to the ED with a cc of constant throat pain beginning 1.5 to 2 hours ago. Etiologies such as food bolus, foreign body, odynophagia, esophageal stricture, esophageal stricture, Zenker's diverticulum. Patient was seen and evaluated bedside. Patient states that she had been eating some steak approximately 1 2:30 hours ago. Patient feels as though she does have a piece stuck in her throat. Patient feels that she cannot swallow and there is some mild discomfort. Patient to her knowledge is no prior history of swallowing issues. There is mild odynophagia. Patient's posterior pharynx is clear and the patient is not stridulous. Clear breath sounds bilaterally. No films were obtained at this time as there was no stridor and the patient states that there was nothing else that she had been eating and it was not a sharp object or battery or other object. Patient did have an IV placed and the patient was given some glucagon and Reglan. The patient did not have much improvement in her symptoms. I did speak with the on-call metal sander. He recommended I talk to GI. I did speak with the on-call GI who came in and did perform an upper endoscopy. The patient was taken to the OR. Medication Reconcilliation Current Medication List: was personally reviewed by me Blood Pressure Screening Patient's blood pressure: Elevated blood pressure Blood pressure disposition: Referred to PCP Consults Time Called: 1853 Consulting Physician: GENE Ricketts Returned Call: 1901 1901: Discussed the patient's case with GENE Ricketts. They recommend consulting GI. Additional Consults: Time Called: 1901 Consulted Physician: VIET Gregory Returned Call: 1909 Additional Comments: 1909: Reviewed the patient's case with VIET Gregory. He will scope the patient. 2913: I discussed the case again with Dr. Lewis GI. The patient will be taken to the OR. Impression Primary Impression: Food impaction of esophagus Additional Impression: Odynophagia Scribe Attestation The scribe's documentation has been prepared under my direction and personally reviewed by me in its entirety. I confirm that the note above accurately reflects all work, treatment, procedures, and medical decision making performed by me. Departure Information Dispostion Being Evaluated By Surgeon Stan Godinez M.D. (PCP) Patient Instructions My [facility] Problem Qualifiers Primary Impression: Food impaction of esophagus Encounter type: initial encounter Qualified Codes: T18.128A - Food in esophagus causing other injury, initial encounter
[2018-04-30 20:07] VITALS: O2SAT 98
[2018-04-30] MEDS ORDERED: SODIUM CHLORIDE 0.9% 500ML 500 ML IV ONE (20:15)
--- NOTE | 2018-04-30 20:15 | Gastrointestinal Consultation ---
Gastrointestinal Consultation Date of Consultation: Apr 30, 2018 Attending Physician: Manjit Herron Consulting Physician: Bong Lewis Reason for Consultation: Food impaction History of Present Illness Patient is a 82 year old female with medical comorbids of HTN, presented to the hospital with food impaction after eating steak. Food stuck in mid chest, denies any chest pain, nausea or vomiting. Drinking water did not help. Denies any abdominal pain, fever or hematemesis. This had never happened previously. No Hx of reflux symptoms. Past Medical/Surgical History Medical Problems: (1) Abrasion of left knee Status: Acute (2) Cellulitis of left lower leg Status: Acute (3) Contusion of left knee Status: Acute (4) Contusion of left leg Status: Acute (5) Food impaction of esophagus Status: Acute (6) Hematoma of lower extremity Status: Acute (7) Odynophagia Status: Acute (8) Patella fracture Status: Acute (9) Pneumonia Status: Acute Past Medical History: As above Past Surgical History: None Family History Cancer Stroke MOTHER Social History Smoking Status: Former Smoker Alcohol Use: occasionally Drug Use: none Marital Status: Housing Status: lives with family Occupation Status: retired Allergies Coded Allergies: Furosemide (Verified Allergy, Intermediate, water blisters, 11/12/17) Current Medications Home Meds and Scripts Medications Dose Route/Sig Max Daily Dose Days Date Category Dose Instructions Keflex (Cephalexin Monohydrate) 500 Mg Cap 1 Cap PO TID 10 04/18/18 Reported Miralax (Polyethylene) 17 Gm Pow 17 Gm PO DAILY PRN 7 11/28/17 Rx Sindhu Aspirin Ec Low Dose (Aspirin) 81 Mg Tab 81 Mg PO HOLD 11/12/17 Reported MEDICATION CURRENTLY BEING HELD UNTIL OTHERWISE DIRECTED TO TAKE BY Propranolol Hcl Er (Propranolol Hcl) 160 Mg Cap 160 Mg PO DAILY 11/12/17 Reported Macular Health Formula (Multiple Vitamins W/ Minerals) 1 Cap Cap 1 Cap PO DAILY 11/12/17 Reported Review of Systems Constitutional: No fever, No chills Eyes: No worsening of vision, No eye pain ENT: No hearing loss, No unusual epistaxis Respiratory: No cough, No sputum Cardiac: No chest pain, No orthopnea Abdomen: + see HPI Musculoskeletal: No joint pain, No swelling Female : No dysuria, No urinary frequency Neuro: No paralysis, No weakness Psych: No anxiety Heme: No abnormal bleeding/bruising Endo: No fatigue Skin: No rash, No bleeding Physical Exam Date Time Temp Pulse Resp B/P (MAP) Pulse Ox O2 Delivery O2 Flow Rate FiO2 04/30/18 20:07 77 16 187/92 98 Room Air 04/30/18 18:46 97 Room Air 04/30/18 18:44 75 24 196/94 96 Room Air 04/30/18 18:18 75 04/30/18 18:10 95 Room Air 95 04/30/18 17:43 36.6 73 18 146/85 95 Room Air General Appearance: no apparent distress Eyes: PERRL ENT: hearing grossly normal Neck: supple, no JVD Respiratory/Chest: lungs clear, normal breath sounds Cardiovascular: regular rate, rhythm, no JVD Abdomen: non tender, soft Extremities: non-tender Neurologic/Psych: oriented x 3 Skin: no jaundice Impression Patient is a 82 year old female with food impaction. No drooling or signs of respiratory distress. Plan Emergent EGD today. I explained the risk, benefit and alternatives and she agreed.
--- NOTE | 2018-04-30 20:51 | [facility] Operative Report ---
Operative Report Operative Date Apr 30, 2018. Pre-Operative Diagnosis Food impaction Post-Operative Diagnosis Food impaction Procedure(s) Performed Esophagogastroduodenoscopy with removal of food impaction Surgeon Dr. Lewis Four Slide Machine Setter Surgeon(s) None Estimated Blood Loss 0cc Specimens None Anesthesia Type General I attest to the content of the Intraoperative Record and any orders documented therein. Any exceptions are noted below.
--- NOTE | 2018-04-30 20:52 | Discharge Instructions ---
Endoscopy Patient Instructions Date / Procedure(s) Performed Apr 30, 2018. EGD Allergy Information Coded Allergies: Furosemide (Verified Allergy, Intermediate, water blisters, 11/12/17) Discharge Date / Findings Apr 30, 2018. Food impaction, successfully removed. Provider Instructions Activity Restrictions - No exercising or heavy lifting for 24 hours. - Do not drink alcohol the day of the procedure. - Do not drive a car or operate machinery until the day after the procedure. - Do not make any important decisions or sign important papers in 24 hours after the procedure. Following Day: - Return to full activity which may include returning to work/school. Diet Start your diet with liquids and light foods (jello, soup, juice, toast). Then eat your usual diet if not nauseated. Treatment For Common After Affects For mild abdominal pain, bloating, or excessive gas: - Rest - Eat lightly - Lie on right side Follow-Up Information Follow-up with as scheduled Anesthesia Information What You Should Know You have had a procedure that required some medicine to reduce anxiety and discomfort. This treatment is called moderate sedation. After receiving the treatment, you may be sleepy, but you will be able to breathe on your own. The effects of the treatment may last for several hours. Follow these instructions along with Activity/Diet recommendations noted above: * Do NOT do anything where dizziness or clumsiness would be dangerous. * Rest quietly at home today, then you can be up and about tomorrow. * Have a responsible person stay with you the rest of today. * You may have had an I.V. today. If so, you may take the dressing off later today. Recommendations Call your doctor if: * Trouble breathing * Continuous vomiting for more than 24 hours * Temperature above 101 degrees * Severe abdominal pain or bloating * Pain not relieved by pain medicine ordered * There is increased drainage or redness from any incision * A large amount of rectal bleeding greater than 2-3 tablespoons. (If you had a polyp/s removed or have hemorrhoids, a small amount of blood - from the rectum is to be expected.) * You have any unanswered questions or concerns. IN THE EVENT OF A SERIOUS EMERGENCY, GO TO THE NEAREST EMERGENCY ROOM Your discharge instructions were prepared by provider Bong Lewis. Patient Instructions Signature Page Charlotte Parada Patient (or Guardian) Signature/Date: I have read and understand the instructions given to me by my caregivers. Caregiver/RN/Doctor Signature/Date: The above-named patient and/or guardian has received patient instructions on this date. + Original Patient Signature Page (only) stays with chart. Please make copy for patient.
[2018-04-30] MEDS ORDERED: LIDOCAINE HCL 2% 2 ML VIAL (20MG/ML) ONE (20:55)
[2018-04-30] MEDS ORDERED: ONDANSETRON INJ 2 MG/ML 2 ML VIAL ONE (20:55)
[2018-04-30] MEDS ORDERED: PROPOFOL IV EMULSION 10 MG/ML 20 ML VIAL ONE (20:55)
--- NOTE | 2018-04-30 21:11 | GI REPORT ---
Patient Name: Charlotte Parada Procedure Date: 04/30/2018 8:25 PM Date of : 1935 Admit Type: Emergency Department Age: 82 Gender: Female Attending MD: Bong Lewis MD Procedure: Upper GI endoscopy Providers: Bong Lewis MD Referring MD: Manjit Herron Indications: Foreign body in the esophagus Medicines: General Anesthesia Complications: No immediate complications. Estimated Blood Loss: Estimated blood loss: none. Procedure: Pre-Anesthesia Assessment: - Prior to the procedure, a History and Physical was performed, and patient medications and allergies were reviewed. The patient is competent. The risks and benefits of the procedure and the sedation options and risks were discussed with the patient. All questions were answered and informed consent was obtained. Patient identification and proposed procedure were verified by the physician and the nurse in the procedure room. Mental Status Examination: alert and oriented. Airway Examination: normal oropharyngeal airway and neck mobility. Respiratory Examination: clear to auscultation. CV Examination: normal. ASA Grade Assessment: E - Emergency. After reviewing the risks and benefits, the patient was deemed in satisfactory condition to undergo the procedure. The anesthesia plan was to use general anesthesia. Immediately prior to administration of medications, the patient was re-assessed for adequacy to receive sedatives. The heart rate, respiratory rate, oxygen saturations, blood pressure, adequacy of pulmonary ventilation, and response to care were monitored throughout the procedure. The physical status of the patient was re-assessed after the procedure. After obtaining informed consent, the endoscope was passed under direct vision. Throughout the procedure, the patient's blood pressure, pulse, and oxygen saturations were monitored continuously. The Scope was introduced through the mouth, and advanced to the second part of duodenum. The upper GI endoscopy was accomplished without difficulty. The patient tolerated the procedure well. Findings: Impacted large bolus of food was found in the upper third of the esophagus at 15 cm from the incisors. Removal of food was accomplished with a phillips net. The underlying mucosa post removal was normal with no stricture. The Z-line was regular and was found 35 cm from the incisors. A medium amount of food (residue) was found in the gastric body. The duodenal bulb and second portion of the duodenum were normal. Impression: - Large Food bolus impacted in the upper third of the esophagus. Removal was successful. No underlying stenosis or stricture. - A medium amount of food (residue) in the stomach. - Normal duodenal bulb and second portion of the duodenum. Recommendation: - Discharge patient to home (with escort). - Advised to chew the food well before swallowing, eat small soft pieces of food to avoid future impaction. Bong Lewis MD 04/30/2018 9:11:10 PM This report has been signed electronically. Note Initiated On: 04/30/2018 8:25 PM Number of Addenda: 0 I attest to the content of the Intraoperative Record and orders documented therein, exceptions below {[id number]}
[2018-04-30] MEDS ORDERED: FENTANYL CITRATE INJ 50 MCG/1 ML 2 ML VIAL IV PRN (21:15)
[2018-04-30] MEDS ORDERED: ONDANSETRON INJ 2 MG/ML 2 ML VIAL IV PRN (21:15)
[2018-04-30] MEDS ORDERED: LABETALOL HCL IV 5 MG/ML 20ML IV PRN (21:15)
[2018-04-30] MEDS ORDERED: ATROPINE SULFATE 0.1 MG/ML 5ML SYR IV PRN (21:15)
--- NOTE | 2018-04-30 21:20 | Anesthesiology Progress Note ---
Anesthesia Post Op Note Date & Time Apr 30, 2018 at 21:20 Vital Signs Pain Intensity: 0 Vital Signs Past 12 Hours Date Time Temp Pulse Resp B/P (MAP) Pulse Ox O2 Delivery O2 Flow Rate FiO2 04/30/18 21:15 74 20 178/84 97 Nasal Cannula 2 04/30/18 21:05 75 20 192/99 98 Oxymask 2 04/30/18 20:58 36.9 76 24 139/97 100 Oxymask 2 04/30/18 20:07 77 16 187/92 98 Room Air 04/30/18 18:46 97 Room Air 04/30/18 18:44 75 24 196/94 96 Room Air 04/30/18 18:18 75 04/30/18 18:10 95 Room Air 95 04/30/18 17:43 36.6 73 18 146/85 95 Room Air Notes Mental Status: alert / awake / arousable, participated in evaluation Pt Amnestic to Procedure: Yes Nausea / Vomiting: adequately controlled Pain: adequately controlled Airway Patency, RR, SpO2: stable & adequate BP & HR: stable & adequate Hydration State: stable & adequate Anesthetic Complications: no major complications apparent
[2018-04-30 21:38] VITALS: BP 166/88; PULSE 75; TEMP 36.6; O2SAT 93; O2SAT 94
[2018-04-30 22:10] VITALS: BP 163/92; PULSE 74; TEMP 36.6; O2SAT 95
== END 2018-04-30 20:10 | disposition home or self-care (01) ==
LOC: C.EDB 17:25 → C.EDC 20:10
DX: T18.128A Food in esophagus causing other injury, initial encounter (principal); X58.XXXA Exposure to other specified factors, initial encounter; R13.11 Dysphagia, oral phase; I10 Essential (primary) hypertension; Z87.891 Personal history of nicotine dependence; Z88.8 Allergy status to other drugs, medicaments and biological substances